=== PATIENT | female | born 1945 | race Asian ===

== ENCOUNTER 2023-03-23 04:06 | Inpatient (IN) | payer MEDICARE, OTHER ==
[~2023-03-23] VITALS: Ht 152.4 cm; Wt 63.5 kg
[2023-03-23] MEDS ORDERED: LORAZEPAM INJ 2 MG/ML VIAL IV ONE ×2 (04:30→06:00)
[2023-03-23] MEDS ORDERED: LORAZEPAM INJ 2 MG/ML VIAL ONE ×2 (04:33→05:35)
[2023-03-23 04:53] LABS: BASOPHILS % (AUTO) 0.3 % (0.0-2.0); EOSINOPHILS # (AUTO) 0.6 K/uL (0.0-0.7); EOSINOPHILS % (AUTO) 8.9 % (0.0-6.0); HEMATOCRIT 32 % (33-45); HEMOGLOBIN 10.2 g/dL (11.5-14.8); LYMPHOCYTES % (AUTO) 14.9 % (20.0-44.0); MEAN CORPUSCULAR HEMOGLOBIN 29 PG (26.0-33.0); MEAN CORPUSCULAR HGB CONC 32 g/dl (31.0-36.0); MEAN CORPUSCULAR VOLUME 90 fL (82-100); MONOCYTES # (AUTO) 0.6 K/uL (0.1-1.30); MONOCYTES % (AUTO) 8.5 % (2.0-12.0); NEUTROPHILS # (AUTO) 4.7 K/uL (1.8-8.9); NEUTROPHILS % (AUTO) 67.4 % (43.0-81.0); PLATELET COUNT (AUTO) 221 K/uL (150-450); RED BLOOD CELL COUNT(AUTO) 3.54 MIL/uL (4.0-5.2); RED CELL DISTRIBUTION WIDTH 17.5 % (11.5-15.0)
[2023-03-23] MEDS ORDERED: hydrALAZINE HCL IV 20 MG VIAL IV ONE (05:00)
[2023-03-23 05:03] LABS: CALCIUM, SERUM 8.8 mg/dL (8.5-10.1); CARBON DIOXIDE 24 mmol/L (21-32); CHLORIDE 107 mmol/L (98-107); CREATININE 1.9 mg/dL (0.6-1.3); GLUCOSE 79 mg/dL (74-106); POTASSIUM 4.7 mmol/L (3.5-5.1); SODIUM SERUM 137 mmol/L (136-145); UREA NITROGEN, BLOOD 51 mg/dL (7-18)
[2023-03-23] MEDS ORDERED: hydrALAZINE HCL IV 20 MG VIAL ONE ×2 (05:05→09:42)
[2023-03-23 05:11] LABS: LACTIC ACID 0.3 mmol/L (0.4-2.0)
[2023-03-23 05:14] LABS: INR 0.92 (0.91-1.10); PARTIAL THROMBOPLASTIN TIME 37.3 SEC (24.3-34.3); PROTHROMBIN TIME 9.8 SECS (9.2-11.1)
[2023-03-23 05:15] LABS: ALANINE AMINOTRANSFERASE 57 U/L (12-78); ALBUMIN 1.8 g/dL (3.4-5.0); ALKALINE PHOSPHATASE 718 U/L (46-116); ASPARTATE AMINOTRANSFERASE 31 U/L (15-37); BILIRUBIN,DIRECT 0.1 mg/dL (0.0-0.2); BILIRUBIN,TOTAL 0.2 mg/dL (0.2-1.0); NT-PRO BNP 16775 pg/mL (0-125); TOTAL PROTEIN, SERUM 6.7 g/dL (6.4-8.2)
[2023-03-23] MEDS ORDERED: FUROSEMIDE 40 MG/4 ML VIAL IV ONE (05:30)
[2023-03-23] MEDS ORDERED: FUROSEMIDE 40 MG/4 ML VIAL ONE (05:35)
[2023-03-23] MEDS ORDERED: NITROGLYCERIN 0.4 MG/TAB BOTTLE ONE (05:36)
[2023-03-23] MEDS ORDERED: Z GUARD REMEDY 4 OZ OINT TP PRN (06:00)
[2023-03-23] MEDS ORDERED: ONDANSETRON HCL/PF 4 MG/2 ML VIAL IVP PRN (06:00)
[2023-03-23] MEDS ORDERED: NITROGLYCERIN 0.4 MG/TAB BOTTLE SL ONE (06:00)
[2023-03-23] MEDS ORDERED: PANTOPRAZOLE 40 MG TABLET.DR PO SCH (07:30)
[2023-03-23] MEDS ORDERED: HYDR-4303 PO (08:40)
[2023-03-23] MEDS ORDERED: TRAM50TA2 PO (08:40)
[2023-03-23] MEDS ORDERED: AMIN30LI2 PO (08:40)
[2023-03-23] MEDS ORDERED: TRAZ-182 PO (08:41)
[2023-03-23] MEDS ORDERED: FOLI0.8T23 PO (08:41)
[2023-03-23] MEDS ORDERED: ONDA4TAB5 PO (08:41)
[2023-03-23] MEDS ORDERED: INSU100V39 SQ (08:41)
[2023-03-23] MEDS ORDERED: INSU100I45 SQ (08:41)
[2023-03-23] MEDS ORDERED: ASCO-340 PO (08:41)
[2023-03-23] MEDS ORDERED: PANT40TA49 PO (08:41)
[2023-03-23] MEDS ORDERED: IPRA3AMP22 IH (08:41)
[2023-03-23] MEDS ORDERED: FERR325T23 PO (08:41)
[2023-03-23] MEDS ORDERED: NUT.237L28 PO (08:41)
[2023-03-23] MEDS ORDERED: MAGN400O6 PO (08:41)
[2023-03-23] MEDS ORDERED: ZINC220C6 PO (08:41)
[2023-03-23] MEDS ORDERED: LIDO30AD10 TP (08:41)
[2023-03-23] MEDS ORDERED: ACET-2605 PO (08:41)
[2023-03-23] MEDS ORDERED: ENOX40DI SQ (08:41)
[2023-03-23] MEDS ORDERED: AMLO10TA4 PO (08:41)
[2023-03-23] MEDS ORDERED: DOCU100T2 PO (08:41)
[2023-03-23] MEDS ORDERED: CARV25TA PO (08:41)
[2023-03-23] MEDS ORDERED: NA P133E RC (08:41)
[2023-03-23] MEDS ORDERED: LORA-258 PO (08:41)
[2023-03-23] MEDS ORDERED: POLY17PO4 PO (08:41)
[2023-03-23] MEDS ORDERED: ACET-868 PO (08:41)
[2023-03-23] MEDS ORDERED: MIRT7.5T10 PO (08:41)
[2023-03-23] MEDS ORDERED: LEVO75TA7 PO (08:41)
[2023-03-23] MEDS ORDERED: ATOR40TA PO (08:42)
[2023-03-23] MEDS ORDERED: FUROSEMIDE 20 MG/2 ML VIAL IV SCH (09:00)
[2023-03-23] MEDS: NITROGLYCERIN PACKET 1 GM PACKET TOP SCH ×2 (09:00→22:36)
[2023-03-23] MEDS ORDERED: ALBUTEROL FS 2.5 MG/3 ML VIAL.NEB ONE (09:07)
[2023-03-23] MEDS ORDERED: IPRATROPIUM NEB FS 0.5 MG/2.5 ML AMPUL.NEB ONE (09:08)
[2023-03-23 09:14] VITALS: O2SAT 97
[2023-03-23] MEDS: ALBUTEROL HALF STRENGTH 1.25 MG/3 ML VIAL.NEB NEB SCH (09:14)
[2023-03-23] MEDS: IPRATROPIUM NEB FS 0.5 MG/2.5 ML AMPUL.NEB NEB SCH (09:14)
[2023-03-23 09:31] VITALS: O2SAT 98
[2023-03-23] MEDS ORDERED: NITROGLYCERIN PACKET 1 GM PACKET ONE (09:43)
[2023-03-23] MEDS: hydrALAZINE HCL IV 20 MG VIAL IV PRN (09:52)
[2023-03-23] MEDS: hydrALAZINE HCL 50 MG TABLET PO SCH (11:00)
[2023-03-23] MEDS: LEVOTHYROXINE SODIUM 75 MCG TABLET PO SCH (11:00)
[2023-03-23] MEDS ORDERED: ENOXAPARIN SODIUM 40 MG/0.4 ML DISP.SYRIN SQ SCH (11:00)
[2023-03-23] MEDS: AMLODIPINE BESYLATE 10 MG TABLET PO SCH (11:00)
[2023-03-23] MEDS: PANTOPRAZOLE 40 MG TABLET.DR PO SCH (11:00)
[2023-03-23] MEDS: POLYETHYLENE GLYCOL 3350 17 GM POWD.PACK PO SCH (11:00)
[2023-03-23] MEDS ORDERED: ACETAMINOPHEN 325 MG TABLET ONE (14:28)
[2023-03-23] MEDS ORDERED: ACETAMINOPHEN 650 MG/SUPP.RECT RC ONE (15:34)
[2023-03-23] MEDS: ACETAMINOPHEN 650 MG/SUPP.RECT RC PRN ×3 (15:46→23:48)
[2023-03-23] MEDS: ACETAMINOPHEN 325 MG TABLET PO PRN ×3 (15:59→23:05)
[2023-03-23] MEDS: CEFTRIAXONE 1 G in IV D5W 50 ML IV SCH (17:00)
[2023-03-23] MEDS: CARVEDILOL 12.5 MG TABLET PO SCH (17:00)
[2023-03-23] MEDS ORDERED: CEFTRIAXONE 1GM BAG (ER ONLY) 50 ML IV ONE ×2 (18:43→19:29)
[2023-03-23] MEDS: AZITHROMYCIN 500 MG in IV D5W 250 ML IV SCH (18:50)
[2023-03-23 20:35] VITALS: BP 136/62; TEMP 97.9; O2SAT 97
[2023-03-23] MEDS: methylPREDNISolone SOD SUCC 125 MG/2ML VIAL IV SCH (22:37)
[2023-03-23] MEDS: HEPARIN SODIUM, PORCINE 5000 UNITS/1 ML VIAL SQ SCH (22:42)
[2023-03-23] MEDS ORDERED: DEXTROSE 50%-WATER 50 ML DISP.SYRIN IV PRN (23:30)
[2023-03-23] MEDS ORDERED: diphenhydrAMINE HCL 50 MG/ML VIAL IV ONE (23:30)
[2023-03-23] MEDS: BLOOD SUGAR DIAGNOSTIC 1 EACH STRIP IN SCH (23:48)
[2023-03-23] MEDS: INSULIN REGULAR, HUMAN 100 UNIT/ML 3 ML VIAL SQ PRN (23:50)
[2023-03-24] VITALS (14 sets, daily range): BP systolic 92–133; BP diastolic 53–70; TEMP 97.2–98; O2SAT 93–98
[2023-03-24] MEDS: ALBUTEROL HALF STRENGTH 1.25 MG/3 ML VIAL.NEB NEB SCH ×4 (01:07→20:12)
[2023-03-24] MEDS: IPRATROPIUM NEB FS 0.5 MG/2.5 ML AMPUL.NEB NEB SCH ×4 (01:07→20:12)
[2023-03-24 01:18] LABS: ABG BASE EXCESS -10.1 mmol/L; ABG OXYGEN SATURATION 97.7 % (92.0-98.5); ABG PCO2 64.8 mmHg (35.0-45.0); ABG PH 7.105 (7.350-7.450); ABG TOTAL HEMOGLOBIN 11.4 G/dL (12.0-16.0); COHb 0.3 % (0.5-1.5); MetHb 0.5 % (0.0-1.5); O2Hb 96.9 % (94.0-97.0); SITE, ABG Left Radial; VENT MODE, BG 8 L O2 NC
[2023-03-24] MEDS: methylPREDNISolone SOD SUCC 125 MG/2ML VIAL IV SCH ×3 (05:47→20:50)
[2023-03-24 07:08] LABS: HEMATOCRIT 34 % (33-45); HEMOGLOBIN 10.2 g/dL (11.5-14.8); LYMPHOCYTES # (AUTO) 0.7 K/uL (0.8-4.8); MEAN CORPUSCULAR HEMOGLOBIN 29 PG (26.0-33.0); MEAN CORPUSCULAR HGB CONC 30 g/dl (31.0-36.0); MEAN CORPUSCULAR VOLUME 94 fL (82-100); MONOCYTES # (AUTO) 0.2 K/uL (0.1-1.30); MONOCYTES % (AUTO) 1.6 % (2.0-12.0); NEUTROPHILS # (AUTO) 10.4 K/uL (1.8-8.9); NEUTROPHILS % (AUTO) 92.4 % (43.0-81.0); PLATELET COUNT (AUTO) 217 K/uL (150-450); RED BLOOD CELL COUNT(AUTO) 3.59 MIL/uL (4.0-5.2); RED CELL DISTRIBUTION WIDTH 18.1 % (11.5-15.0); WHITE BLOOD COUNT (AUTO) 11.2 K/uL (4.3-11.0)
[2023-03-24 07:38] LABS: CHOLESTEROL 189 mg/dL (<200); HDL CHOLESTEROL 81 mg/dL (40-60); LDL 64 mg/dL (0-99); TRIGLYCERIDES 144 mg/dL (30-150)
[2023-03-24 07:42] LABS: CARBON DIOXIDE 14 mmol/L (21-32); CHLORIDE 106 mmol/L (98-107); CREATININE 2.6 mg/dL (0.6-1.3); GLUCOSE 103 mg/dL (74-106); MAGNESIUM 1.9 mg/dL (1.8-2.4); POTASSIUM 5.5 mmol/L (3.5-5.1); SODIUM SERUM 139 mmol/L (136-145); UREA NITROGEN, BLOOD 73 mg/dL (7-18)
[2023-03-24] MEDS: BLOOD SUGAR DIAGNOSTIC 1 EACH STRIP IN SCH ×4 (07:54→21:44)
[2023-03-24 08:47] LABS: PHOSPHORUS 8.7 mg/dL (2.5-4.9)
[2023-03-24] MEDS: POLYETHYLENE GLYCOL 3350 17 GM POWD.PACK PO SCH (08:51)
[2023-03-24] MEDS: AMLODIPINE BESYLATE 10 MG TABLET PO SCH (08:52)
[2023-03-24] MEDS: NITROGLYCERIN PACKET 1 GM PACKET TOP SCH ×2 (08:52→21:11)
[2023-03-24] MEDS: LEVOTHYROXINE SODIUM 75 MCG TABLET PO SCH (08:53)
[2023-03-24] MEDS: CARVEDILOL 12.5 MG TABLET PO SCH ×2 (08:53→17:29)
[2023-03-24] MEDS: PANTOPRAZOLE 40 MG TABLET.DR PO SCH ×2 (08:55→17:29)
[2023-03-24] MEDS: HEPARIN SODIUM, PORCINE 5000 UNITS/1 ML VIAL SQ SCH ×2 (09:01→20:57)
[2023-03-24] MEDS: hydrALAZINE HCL 50 MG TABLET PO SCH ×3 (09:26→17:28)
[2023-03-24] MEDS: LORAZEPAM 0.5 MG TABLET PO PRN ×2 (09:51→21:55)
[2023-03-24] MEDS ORDERED: IV D5/ 0.9% NACL 1,000 ML IV PRN (13:30)
[2023-03-24] MEDS: AZITHROMYCIN 500 MG in IV D5W 250 ML IV SCH (16:43)
[2023-03-24] MEDS: CEFTRIAXONE 1 G in IV D5W 50 ML IV SCH (17:26)
[2023-03-24] MEDS: INSULIN REGULAR, HUMAN 100 UNIT/ML 3 ML VIAL SQ PRN (22:00)
[2023-03-25] VITALS (16 sets, daily range): BP systolic 88–156; BP diastolic 44–91; TEMP 97.9–99.8; O2SAT 93–99
[2023-03-25] MEDS: IPRATROPIUM NEB FS 0.5 MG/2.5 ML AMPUL.NEB NEB SCH ×4 (01:44→20:10)
[2023-03-25] MEDS: ALBUTEROL HALF STRENGTH 1.25 MG/3 ML VIAL.NEB NEB SCH ×4 (01:44→20:10)
[2023-03-25] MEDS: methylPREDNISolone SOD SUCC 125 MG/2ML VIAL IV SCH ×3 (05:38→20:58)
[2023-03-25 06:52] LABS: BASOPHILS % (AUTO) 0.1 % (0.0-2.0); EOSINOPHILS % (AUTO) 0.1 % (0.0-6.0); HEMATOCRIT 31 % (33-45); HEMOGLOBIN 9.8 g/dL (11.5-14.8); LYMPHOCYTES # (AUTO) 0.6 K/uL (0.8-4.8); LYMPHOCYTES % (AUTO) 5.1 % (20.0-44.0); MEAN CORPUSCULAR HEMOGLOBIN 29 PG (26.0-33.0); MEAN CORPUSCULAR HGB CONC 31 g/dl (31.0-36.0); MEAN CORPUSCULAR VOLUME 93 fL (82-100); MONOCYTES # (AUTO) 0.2 K/uL (0.1-1.30); NEUTROPHILS % (AUTO) 92.7 % (43.0-81.0); PLATELET COUNT (AUTO) 208 K/uL (150-450); RED BLOOD CELL COUNT(AUTO) 3.37 MIL/uL (4.0-5.2); RED CELL DISTRIBUTION WIDTH 17.3 % (11.5-15.0); WHITE BLOOD COUNT (AUTO) 11.8 K/uL (4.3-11.0)
[2023-03-25 07:01] LABS: CALCIUM, SERUM 8.1 mg/dL (8.5-10.1); CARBON DIOXIDE 14 mmol/L (21-32); CHLORIDE 106 mmol/L (98-107); CREATININE 3.3 mg/dL (0.6-1.3); GLUCOSE 165 mg/dL (74-106); MAGNESIUM 2.1 mg/dL (1.8-2.4); POTASSIUM 5.9 mmol/L (3.5-5.1); SODIUM SERUM 138 mmol/L (136-145)
[2023-03-25 07:02] LABS: UREA NITROGEN, BLOOD 88 mg/dL (7-18)
[2023-03-25] MEDS: BLOOD SUGAR DIAGNOSTIC 1 EACH STRIP IN SCH ×4 (07:58→22:00)
[2023-03-25] MEDS: INSULIN REGULAR, HUMAN 100 UNIT/ML 3 ML VIAL SQ PRN ×4 (08:10→23:18)
[2023-03-25 08:55] LABS: ABG BASE EXCESS -13.4 mmol/L; ABG OXYGEN SATURATION 96.9 % (92.0-98.5); ABG PCO2 44.1 mmHg (35.0-45.0); ABG PH 7.146 (7.350-7.450); ABG TOTAL HEMOGLOBIN 11.2 G/dL (12.0-16.0); AaDO2 124.5 mmHg; COHb 0.3 % (0.5-1.5); MetHb 0.4 % (0.0-1.5); O2Hb 96.2 % (94.0-97.0); SITE, ABG Left Radial; VENT MODE, BG Nasal Cannula
[2023-03-25] MEDS ORDERED: DEXTROSE 50%-WATER 50 ML DISP.SYRIN IV ONE (09:00)
[2023-03-25] MEDS ORDERED: ALBUTEROL FS 2.5 MG/3 ML VIAL.NEB NEB ONE (09:00)
[2023-03-25] MEDS ORDERED: INSULIN REGULAR, HUMAN 100 UNIT/ML 10 ML VIAL IV ONE (09:00)
[2023-03-25] MEDS ORDERED: SODIUM BICARBONATE SYR 50 MEQ/50 ML DISP.SYRIN IV ONE (09:00)
[2023-03-25] MEDS: POLYETHYLENE GLYCOL 3350 17 GM POWD.PACK PO SCH (09:00)
[2023-03-25] MEDS: HEPARIN SODIUM, PORCINE 5000 UNITS/1 ML VIAL SQ SCH ×2 (09:43→20:56)
[2023-03-25] MEDS: LEVOTHYROXINE SODIUM 75 MCG TABLET PO SCH (09:48)
[2023-03-25] MEDS: NITROGLYCERIN PACKET 1 GM PACKET TOP SCH ×3 (09:48→21:02)
[2023-03-25] MEDS: PANTOPRAZOLE 40 MG TABLET.DR PO SCH ×2 (09:48→17:31)
[2023-03-25] MEDS: LORAZEPAM 0.5 MG TABLET PO PRN (09:48)
[2023-03-25] MEDS: AMLODIPINE BESYLATE 10 MG TABLET PO SCH (10:20)
[2023-03-25] MEDS: hydrALAZINE HCL 50 MG TABLET PO SCH ×3 (10:21→16:09)
[2023-03-25] MEDS: CARVEDILOL 12.5 MG TABLET PO SCH ×2 (10:21→16:09)
[2023-03-25 12:04] LABS: CREATININE, URINE 65.7 MG/DL (30.0-125.0); URINE TOTAL PROTEIN 1779.3 mg/dL (0-11.9)
[2023-03-25 12:12] LABS: APPEARANCE,URINE TURBID (CLEAR); BILIRUBIN,URINE NEGATIVE (NEGATIVE); BLOOD, URINE 1+ Ery/uL (NEGATIVE); COLOR,URINE DARK YELLOW (YELLOW); KETONES,URINE TRACE mg/dL (NEGATIVE); LEUKOCYTE ESTERASE ,URINE 1+ (NEGATIVE); NITRITE, URINE NEGATIVE (NEGATIVE); PROTEIN,URINE 3+ mg/dl (NEGATIVE); UGLUCOSE NEGATIVE (NEGATIVE); UROBILINOGEN,URINE 0.2 EU/dL (0.2)
[2023-03-25 12:31] LABS: ADD URINE CULTURE YES; BACTERIA,URINE Few /HPF (None Seen); EOSINOPHIL,URINE None Seen; SQUAMOUS EPITHELIAL CELL,UR Rare /HPF (None Seen)
[2023-03-25] MEDS: Sodium Bicarbonate 100 MEQ in IV D5 / 0.2% NACL 1,000 ML IV SCH ×3 (12:48→23:16)
[2023-03-25] MEDS: CALCIUM ACETATE 667 MG CAP/TAB PO SCH ×2 (12:51→17:31)
[2023-03-25 14:18] LABS: CALCIUM, SERUM 7.8 mg/dL (8.5-10.1); CARBON DIOXIDE 17 mmol/L (21-32); CHLORIDE 107 mmol/L (98-107); CREATININE 3.5 mg/dL (0.6-1.3); GLUCOSE 132 mg/dL (74-106); POTASSIUM 5.2 mmol/L (3.5-5.1); SODIUM SERUM 139 mmol/L (136-145)
[2023-03-25] MEDS: AZITHROMYCIN 500 MG in IV D5W 250 ML IV SCH (15:31)
[2023-03-25] MEDS: CEFTRIAXONE 1 G in IV D5W 50 ML IV SCH (16:35)
[2023-03-25 16:54] LABS: UREA NITROGEN, BLOOD 96 mg/dL (7-18)
[2023-03-26] VITALS (14 sets, daily range): BP systolic 126–142; BP diastolic 57–98; TEMP 97–97.9; O2SAT 96–98
[2023-03-26] MEDS: ALBUTEROL HALF STRENGTH 1.25 MG/3 ML VIAL.NEB NEB SCH ×4 (00:46→20:24)
[2023-03-26] MEDS: IPRATROPIUM NEB FS 0.5 MG/2.5 ML AMPUL.NEB NEB SCH ×4 (00:46→20:24)
[2023-03-26] MEDS: methylPREDNISolone SOD SUCC 125 MG/2ML VIAL IV SCH (05:00)
[2023-03-26 06:22] LABS: ABG BASE EXCESS -7.3 mmol/L; ABG PCO2 44.6 mmHg (35.0-45.0); ABG PH 7.258 (7.350-7.450); ABG PO2 70.7 mmHg (75.0-100.0); AaDO2 105.3 mmHg; COHb 0.3 % (0.5-1.5); MetHb 0.1 % (0.0-1.5); O2Hb 92.6 % (94.0-97.0); SITE, ABG Right Radial; VENT MODE, BG NC 32 %
[2023-03-26 07:06] LABS: BASOPHILS % (AUTO) 0.1 % (0.0-2.0); HEMATOCRIT 31 % (33-45); LYMPHOCYTES # (AUTO) 0.4 K/uL (0.8-4.8); LYMPHOCYTES % (AUTO) 2.3 % (20.0-44.0); MEAN CORPUSCULAR HEMOGLOBIN 29 PG (26.0-33.0); MEAN CORPUSCULAR HGB CONC 32 g/dl (31.0-36.0); MEAN CORPUSCULAR VOLUME 89 fL (82-100); MONOCYTES # (AUTO) 0.3 K/uL (0.1-1.30); MONOCYTES % (AUTO) 1.6 % (2.0-12.0); NEUTROPHILS # (AUTO) 17.6 K/uL (1.8-8.9); PLATELET COUNT (AUTO) 229 K/uL (150-450); RED BLOOD CELL COUNT(AUTO) 3.47 MIL/uL (4.0-5.2); RED CELL DISTRIBUTION WIDTH 17.3 % (11.5-15.0); WHITE BLOOD COUNT (AUTO) 18.3 K/uL (4.3-11.0)
[2023-03-26 07:21] LABS: ALANINE AMINOTRANSFERASE 47 U/L (12-78); ALBUMIN 1.8 g/dL (3.4-5.0); ALKALINE PHOSPHATASE 463 U/L (46-116); ASPARTATE AMINOTRANSFERASE 56 U/L (15-37); BILIRUBIN,TOTAL 0.2 mg/dL (0.2-1.0); CALCIUM, SERUM 7.4 mg/dL (8.5-10.1); CARBON DIOXIDE 18 mmol/L (21-32); CHLORIDE 103 mmol/L (98-107); CREATININE 3.3 mg/dL (0.6-1.3); GLUCOSE 180 mg/dL (74-106); POTASSIUM 5.7 mmol/L (3.5-5.1); SODIUM SERUM 137 mmol/L (136-145); TOTAL PROTEIN, SERUM 6.5 g/dL (6.4-8.2)
[2023-03-26 07:23] LABS: LACTIC ACID 0.5 mmol/L (0.4-2.0)
[2023-03-26 07:57] LABS: PHOSPHORUS 8.7 mg/dL (2.5-4.9); UREA NITROGEN, BLOOD 94 mg/dL (7-18)
[2023-03-26] MEDS: BLOOD SUGAR DIAGNOSTIC 1 EACH STRIP IN SCH ×4 (08:02→21:58)
[2023-03-26] MEDS: NITROGLYCERIN PACKET 1 GM PACKET TOP SCH ×2 (08:11→20:10)
[2023-03-26] MEDS: CALCIUM ACETATE 667 MG CAP/TAB PO SCH ×3 (08:11→17:06)
[2023-03-26] MEDS: hydrALAZINE HCL 50 MG TABLET PO SCH ×3 (08:12→16:56)
[2023-03-26] MEDS: AMLODIPINE BESYLATE 10 MG TABLET PO SCH (08:12)
[2023-03-26] MEDS: LEVOTHYROXINE SODIUM 75 MCG TABLET PO SCH (08:12)
[2023-03-26] MEDS: PANTOPRAZOLE 40 MG TABLET.DR PO SCH ×2 (08:13→16:58)
[2023-03-26] MEDS: POLYETHYLENE GLYCOL 3350 17 GM POWD.PACK PO SCH (08:13)
[2023-03-26] MEDS: LORAZEPAM 0.5 MG TABLET PO PRN (08:13)
[2023-03-26] MEDS: CARVEDILOL 12.5 MG TABLET PO SCH ×2 (08:13→16:56)
[2023-03-26] MEDS: HEPARIN SODIUM, PORCINE 5000 UNITS/1 ML VIAL SQ SCH ×2 (08:14→20:09)
[2023-03-26] MEDS: INSULIN REGULAR, HUMAN 100 UNIT/ML 3 ML VIAL SQ PRN ×4 (08:39→22:01)
[2023-03-26] MEDS: Sodium Bicarbonate 100 MEQ in IV D5 / 0.2% NACL 1,000 ML IV SCH (11:52)
[2023-03-26] MEDS ORDERED: LORAZEPAM INJ 2 MG/ML VIAL IV ONE (12:30)
[2023-03-26] MEDS: AZITHROMYCIN 500 MG in IV D5W 250 ML IV SCH (16:04)
[2023-03-26] MEDS: CEFTRIAXONE 1 G in IV D5W 50 ML IV SCH (16:58)
[2023-03-26] MEDS: methylPREDNISolone SOD SUCC 40 MG/ML VIAL IV SCH (17:16)
[2023-03-26] MEDS: Sodium Bicarbonate 150 MEQ in IV D5 / 0.2% NACL 1,000 ML IV SCH (18:18)
[2023-03-27] VITALS (12 sets, daily range): BP systolic 103–139; BP diastolic 68–84; TEMP 97.8–98.2; O2SAT 95–100
[2023-03-27] MEDS: ALBUTEROL HALF STRENGTH 1.25 MG/3 ML VIAL.NEB NEB SCH ×4 (01:43→20:44)
[2023-03-27] MEDS: IPRATROPIUM NEB FS 0.5 MG/2.5 ML AMPUL.NEB NEB SCH ×4 (01:43→20:44)
[2023-03-27] MEDS ORDERED: LORAZEPAM INJ 2 MG/ML VIAL IV ONE (02:00)
[2023-03-27] MEDS: Sodium Bicarbonate 150 MEQ in IV D5 / 0.2% NACL 1,000 ML IV SCH (07:13)
[2023-03-27] MEDS: BLOOD SUGAR DIAGNOSTIC 1 EACH STRIP IN SCH ×4 (07:22→22:49)
[2023-03-27] MEDS: INSULIN REGULAR, HUMAN 100 UNIT/ML 3 ML VIAL SQ PRN ×3 (07:23→23:07)
[2023-03-27] MEDS: AMLODIPINE BESYLATE 10 MG TABLET PO SCH (08:33)
[2023-03-27] MEDS: PANTOPRAZOLE 40 MG TABLET.DR PO SCH ×2 (08:33→16:01)
[2023-03-27] MEDS: CALCIUM ACETATE 667 MG CAP/TAB PO SCH ×3 (08:35→17:00)
[2023-03-27] MEDS: CARVEDILOL 12.5 MG TABLET PO SCH ×2 (08:35→16:01)
[2023-03-27] MEDS: hydrALAZINE HCL 50 MG TABLET PO SCH ×3 (08:35→16:00)
[2023-03-27] MEDS: methylPREDNISolone SOD SUCC 40 MG/ML VIAL IV SCH ×2 (08:35→16:19)
[2023-03-27] MEDS: NITROGLYCERIN PACKET 1 GM PACKET TOP SCH ×2 (08:35→21:05)
[2023-03-27] MEDS: LEVOTHYROXINE SODIUM 75 MCG TABLET PO SCH (08:36)
[2023-03-27] MEDS: HEPARIN SODIUM, PORCINE 5000 UNITS/1 ML VIAL SQ SCH ×2 (08:39→21:09)
[2023-03-27] MEDS: POLYETHYLENE GLYCOL 3350 17 GM POWD.PACK PO SCH (08:40)
[2023-03-27] MEDS ORDERED: VIT B CMPLX 3/FA/VIT C/BIOTIN 1 TAB TABLET PO SCH (09:00)
[2023-03-27] MEDS: MORPHINE SULFATE INJ 2 MG/ML DISP.SYRIN IV PRN (12:13)
[2023-03-27] MEDS: LORAZEPAM 0.5 MG TABLET PO PRN (12:14)
[2023-03-27 15:52] LABS: HEMATOCRIT 30 % (33-45); HEMOGLOBIN 9.7 g/dL (11.5-14.8); LYMPHOCYTES # (AUTO) 0.2 K/uL (0.8-4.8); LYMPHOCYTES % (AUTO) 2.6 % (20.0-44.0); MEAN CORPUSCULAR HEMOGLOBIN 29 PG (26.0-33.0); MEAN CORPUSCULAR HGB CONC 33 g/dl (31.0-36.0); MEAN CORPUSCULAR VOLUME 89 fL (82-100); MONOCYTES # (AUTO) 0.2 K/uL (0.1-1.30); MONOCYTES % (AUTO) 1.8 % (2.0-12.0); NEUTROPHILS # (AUTO) 8.9 K/uL (1.8-8.9); NEUTROPHILS % (AUTO) 95.6 % (43.0-81.0); PLATELET COUNT (AUTO) 176 K/uL (150-450); RED BLOOD CELL COUNT(AUTO) 3.37 MIL/uL (4.0-5.2); RED CELL DISTRIBUTION WIDTH 17.6 % (11.5-15.0); WHITE BLOOD COUNT (AUTO) 9.3 K/uL (4.3-11.0)
[2023-03-27 16:01] LABS: CALCIUM, SERUM 6.9 mg/dL (8.5-10.1); CARBON DIOXIDE 29 mmol/L (21-32); CHLORIDE 104 mmol/L (98-107); CREATININE 2.9 mg/dL (0.6-1.3); GLUCOSE 95 mg/dL (74-106); MAGNESIUM 1.8 mg/dL (1.8-2.4); PHOSPHORUS 7.6 mg/dL (2.5-4.9); POTASSIUM 4.6 mmol/L (3.5-5.1); SODIUM SERUM 142 mmol/L (136-145)
[2023-03-27 16:06] LABS: UREA NITROGEN, BLOOD 89 mg/dL (7-18)
[2023-03-27] MEDS: AZITHROMYCIN 500 MG in IV D5W 250 ML IV SCH (16:19)
[2023-03-27] MEDS: CEFTRIAXONE 1 G in IV D5W 50 ML IV SCH (17:17)
[2023-03-28] VITALS (12 sets, daily range): BP systolic 106–170; BP diastolic 78–140; TEMP 96.7–98.2; O2SAT 89–98
[2023-03-28] MEDS: LORAZEPAM 0.5 MG TABLET PO PRN (00:48)
[2023-03-28] MEDS: ALBUTEROL HALF STRENGTH 1.25 MG/3 ML VIAL.NEB NEB SCH ×4 (02:12→20:01)
[2023-03-28] MEDS: IPRATROPIUM NEB FS 0.5 MG/2.5 ML AMPUL.NEB NEB SCH ×4 (02:12→20:01)
[2023-03-28] MEDS: Sodium Bicarbonate 150 MEQ in IV D5 / 0.2% NACL 1,000 ML IV SCH ×2 (04:34→10:08)
[2023-03-28] MEDS: BLOOD SUGAR DIAGNOSTIC 1 EACH STRIP IN SCH ×4 (06:20→21:28)
[2023-03-28] MEDS: INSULIN REGULAR, HUMAN 100 UNIT/ML 3 ML VIAL SQ PRN ×2 (06:47→21:28)
[2023-03-28] MEDS: CALCIUM ACETATE 667 MG CAP/TAB PO SCH ×3 (08:00→18:00)
[2023-03-28 08:09] LABS: BASOPHILS % (AUTO) 0.5 % (0.0-2.0); HEMATOCRIT 34 % (33-45); HEMOGLOBIN 10.8 g/dL (11.5-14.8); LYMPHOCYTES # (AUTO) 0.3 K/uL (0.8-4.8); LYMPHOCYTES % (AUTO) 3.3 % (20.0-44.0); MEAN CORPUSCULAR HEMOGLOBIN 29 PG (26.0-33.0); MEAN CORPUSCULAR HGB CONC 32 g/dl (31.0-36.0); MEAN CORPUSCULAR VOLUME 91 fL (82-100); MONOCYTES # (AUTO) 0.5 K/uL (0.1-1.30); MONOCYTES % (AUTO) 5.2 % (2.0-12.0); NEUTROPHILS # (AUTO) 8.3 K/uL (1.8-8.9); PLATELET COUNT (AUTO) 124 K/uL (150-450); RED BLOOD CELL COUNT(AUTO) 3.69 MIL/uL (4.0-5.2); RED CELL DISTRIBUTION WIDTH 17.7 % (11.5-15.0); WHITE BLOOD COUNT (AUTO) 9.2 K/uL (4.3-11.0)
[2023-03-28 08:13] LABS: CALCIUM, SERUM 6.8 mg/dL (8.5-10.1); CARBON DIOXIDE 30 mmol/L (21-32); CHLORIDE 103 mmol/L (98-107); CREATININE 2.5 mg/dL (0.6-1.3); GLUCOSE 133 mg/dL (74-106); POTASSIUM 5.2 mmol/L (3.5-5.1); SODIUM SERUM 140 mmol/L (136-145)
[2023-03-28 08:20] LABS: UREA NITROGEN, BLOOD 85 mg/dL (7-18)
[2023-03-28] MEDS: methylPREDNISolone SOD SUCC 40 MG/ML VIAL IV SCH ×2 (08:38→17:02)
[2023-03-28] MEDS: hydrALAZINE HCL 50 MG TABLET PO SCH ×3 (08:40→17:00)
[2023-03-28] MEDS: MORPHINE SULFATE INJ 2 MG/ML DISP.SYRIN IV PRN ×2 (08:40→21:56)
[2023-03-28] MEDS: CARVEDILOL 12.5 MG TABLET PO SCH ×2 (08:40→17:00)
[2023-03-28] MEDS: NITROGLYCERIN PACKET 1 GM PACKET TOP SCH ×2 (08:41→20:27)
[2023-03-28] MEDS: PANTOPRAZOLE 40 MG TABLET.DR PO SCH ×2 (08:41→17:00)
[2023-03-28] MEDS: AMLODIPINE BESYLATE 10 MG TABLET PO SCH (08:41)
[2023-03-28] MEDS: POLYETHYLENE GLYCOL 3350 17 GM POWD.PACK PO SCH (08:41)
[2023-03-28] MEDS: LEVOTHYROXINE SODIUM 75 MCG TABLET PO SCH (08:41)
[2023-03-28] MEDS: HEPARIN SODIUM, PORCINE 5000 UNITS/1 ML VIAL SQ SCH ×2 (09:07→20:28)
[2023-03-28] MEDS: hydrALAZINE HCL IV 20 MG VIAL IV PRN (15:56)
[2023-03-28] MEDS: CEFTRIAXONE 1 G in IV D5W 50 ML IV SCH (17:17)
[2023-03-28] MEDS: IV D5/ 0.9% NACL 1,000 ML IV PRN (19:49)
[2023-03-29] VITALS (12 sets, daily range): BP systolic 130–156; BP diastolic 60–99; TEMP 97.9–98.2; O2SAT 94–98
[2023-03-29] MEDS: ALBUTEROL HALF STRENGTH 1.25 MG/3 ML VIAL.NEB NEB SCH ×4 (02:06→20:10)
[2023-03-29] MEDS: IPRATROPIUM NEB FS 0.5 MG/2.5 ML AMPUL.NEB NEB SCH ×4 (02:06→20:10)
[2023-03-29] MEDS ORDERED: LORAZEPAM INJ 2 MG/ML VIAL IV PRN (03:30)
[2023-03-29] MEDS: BLOOD SUGAR DIAGNOSTIC 1 EACH STRIP IN SCH ×4 (07:38→22:09)
[2023-03-29] MEDS: CALCIUM ACETATE 667 MG CAP/TAB PO SCH ×3 (07:40→17:00)
[2023-03-29 08:07] LABS: BASOPHILS % (AUTO) 0.2 % (0.0-2.0); HEMATOCRIT 38 % (33-45); HEMOGLOBIN 12.5 g/dL (11.5-14.8); LYMPHOCYTES # (AUTO) 0.4 K/uL (0.8-4.8); LYMPHOCYTES % (AUTO) 4.1 % (20.0-44.0); MEAN CORPUSCULAR HEMOGLOBIN 29 PG (26.0-33.0); MEAN CORPUSCULAR HGB CONC 33 g/dl (31.0-36.0); MEAN CORPUSCULAR VOLUME 89 fL (82-100); MONOCYTES # (AUTO) 0.3 K/uL (0.1-1.30); NEUTROPHILS # (AUTO) 9.5 K/uL (1.8-8.9); NEUTROPHILS % (AUTO) 92.7 % (43.0-81.0); PLATELET COUNT (AUTO) 190 K/uL (150-450); RED BLOOD CELL COUNT(AUTO) 4.25 MIL/uL (4.0-5.2); RED CELL DISTRIBUTION WIDTH 17.5 % (11.5-15.0); WHITE BLOOD COUNT (AUTO) 10.3 K/uL (4.3-11.0)
[2023-03-29] MEDS: methylPREDNISolone SOD SUCC 40 MG/ML VIAL IV SCH ×2 (08:17→16:27)
[2023-03-29] MEDS: MORPHINE SULFATE INJ 2 MG/ML DISP.SYRIN IV PRN ×2 (08:17→14:44)
[2023-03-29] MEDS: HEPARIN SODIUM, PORCINE 5000 UNITS/1 ML VIAL SQ SCH ×2 (08:18→20:47)
[2023-03-29] MEDS: hydrALAZINE HCL 50 MG TABLET PO SCH ×3 (08:19→16:27)
[2023-03-29] MEDS: CARVEDILOL 12.5 MG TABLET PO SCH ×2 (08:19→16:28)
[2023-03-29] MEDS: POLYETHYLENE GLYCOL 3350 17 GM POWD.PACK PO SCH (08:20)
[2023-03-29] MEDS: PANTOPRAZOLE 40 MG TABLET.DR PO SCH ×2 (08:20→16:28)
[2023-03-29] MEDS: AMLODIPINE BESYLATE 10 MG TABLET PO SCH (08:20)
[2023-03-29] MEDS: LEVOTHYROXINE SODIUM 75 MCG TABLET PO SCH (08:20)
[2023-03-29] MEDS: NITROGLYCERIN PACKET 1 GM PACKET TOP SCH ×2 (08:20→20:46)
[2023-03-29 08:23] LABS: CALCIUM, SERUM 7.2 mg/dL (8.5-10.1); CARBON DIOXIDE 27 mmol/L (21-32); CHLORIDE 104 mmol/L (98-107); CREATININE 2.4 mg/dL (0.6-1.3); GLUCOSE 146 mg/dL (74-106); MAGNESIUM 1.9 mg/dL (1.8-2.4); POTASSIUM 4.9 mmol/L (3.5-5.1); SODIUM SERUM 144 mmol/L (136-145)
[2023-03-29 08:47] LABS: UREA NITROGEN, BLOOD 88 mg/dL (7-18)
[2023-03-29] MEDS ORDERED: NEPRO 1,000 ML BOTTLE NG PRN (11:00)
[2023-03-29] MEDS: LORAZEPAM 0.5 MG TABLET PO PRN (14:27)
[2023-03-29] MEDS: CEFTRIAXONE 1 G in IV D5W 50 ML IV SCH (16:58)
[2023-03-29] MEDS: DIVALPROEX SODIUM 125 MG CAP.SPRINK PO SCH ×2 (18:00→20:46)
[2023-03-29] MEDS: LORAZEPAM INJ 2 MG/ML VIAL IV PRN (22:02)
[2023-03-29] MEDS: INSULIN REGULAR, HUMAN 100 UNIT/ML 3 ML VIAL SQ PRN (22:15)
[2023-03-30] VITALS (13 sets, daily range): BP systolic 133–167; BP diastolic 60–114; TEMP 97–97.9; O2SAT 90–100
[2023-03-30] MEDS: ALBUTEROL HALF STRENGTH 1.25 MG/3 ML VIAL.NEB NEB SCH ×4 (01:58→20:27)
[2023-03-30] MEDS: IPRATROPIUM NEB FS 0.5 MG/2.5 ML AMPUL.NEB NEB SCH ×4 (01:58→20:27)
[2023-03-30] MEDS: IV D5/ 0.9% NACL 1,000 ML IV PRN (03:04)
[2023-03-30 07:18] LABS: HEMATOCRIT 37 % (33-45); HEMOGLOBIN 11.8 g/dL (11.5-14.8); LYMPHOCYTES # (AUTO) 0.4 K/uL (0.8-4.8); MEAN CORPUSCULAR HEMOGLOBIN 29 PG (26.0-33.0); MEAN CORPUSCULAR HGB CONC 32 g/dl (31.0-36.0); MEAN CORPUSCULAR VOLUME 89 fL (82-100); MONOCYTES # (AUTO) 0.5 K/uL (0.1-1.30); MONOCYTES % (AUTO) 4.8 % (2.0-12.0); NEUTROPHILS # (AUTO) 8.8 K/uL (1.8-8.9); NEUTROPHILS % (AUTO) 91.2 % (43.0-81.0); PLATELET COUNT (AUTO) 188 K/uL (150-450); RED CELL DISTRIBUTION WIDTH 17.7 % (11.5-15.0); WHITE BLOOD COUNT (AUTO) 9.6 K/uL (4.3-11.0)
[2023-03-30] MEDS: BLOOD SUGAR DIAGNOSTIC 1 EACH STRIP IN SCH ×4 (07:32→22:09)
[2023-03-30] MEDS: CALCIUM ACETATE 667 MG CAP/TAB PO SCH ×3 (07:33→17:07)
[2023-03-30 07:45] LABS: CALCIUM, SERUM 7.5 mg/dL (8.5-10.1); CARBON DIOXIDE 31 mmol/L (21-32); CHLORIDE 107 mmol/L (98-107); CREATININE 2.7 mg/dL (0.6-1.3); GLUCOSE 99 mg/dL (74-106); POTASSIUM 5.1 mmol/L (3.5-5.1); SODIUM SERUM 146 mmol/L (136-145)
[2023-03-30 07:49] LABS: UREA NITROGEN, BLOOD 94 mg/dL (7-18)
[2023-03-30] MEDS: hydrALAZINE HCL 50 MG TABLET PO SCH ×3 (08:26→17:00)
[2023-03-30] MEDS: CARVEDILOL 12.5 MG TABLET PO SCH ×2 (08:30→17:00)
[2023-03-30] MEDS: AMLODIPINE BESYLATE 10 MG TABLET PO SCH (08:31)
[2023-03-30] MEDS: DIVALPROEX SODIUM 125 MG CAP.SPRINK PO SCH ×2 (08:31→21:00)
[2023-03-30] MEDS: POLYETHYLENE GLYCOL 3350 17 GM POWD.PACK PO SCH (08:31)
[2023-03-30] MEDS: PANTOPRAZOLE 40 MG TABLET.DR PO SCH ×2 (08:32→17:00)
[2023-03-30] MEDS: LEVOTHYROXINE SODIUM 75 MCG TABLET PO SCH (08:32)
[2023-03-30] MEDS: NITROGLYCERIN PACKET 1 GM PACKET TOP SCH ×2 (09:00→21:30)
[2023-03-30] MEDS: methylPREDNISolone SOD SUCC 40 MG/ML VIAL IV SCH (09:00)
[2023-03-30] MEDS: HEPARIN SODIUM, PORCINE 5000 UNITS/1 ML VIAL SQ SCH (09:03)
[2023-03-30] MEDS: LEVOTHYROXINE INJ 100 MCG VIAL IV SCH (15:21)
[2023-03-30] MEDS: LORAZEPAM INJ 2 MG/ML VIAL IV PRN (16:05)
[2023-03-30] MEDS: CEFTRIAXONE 1 G in IV D5W 50 ML IV SCH (17:13)
[2023-03-30] MEDS: IV D5W 1,000 ML IV PRN (20:44)
[2023-03-30] MEDS: INSULIN REGULAR, HUMAN 100 UNIT/ML 3 ML VIAL SQ PRN (22:14)
[2023-03-31] VITALS (11 sets, daily range): BP systolic 160–200; BP diastolic 66–118; TEMP 97.7–98.2; O2SAT 91–100
[2023-03-31] MEDS: LORAZEPAM INJ 2 MG/ML VIAL IV PRN ×2 (00:35→10:56)
[2023-03-31] MEDS: ALBUTEROL HALF STRENGTH 1.25 MG/3 ML VIAL.NEB NEB SCH ×4 (00:47→19:46)
[2023-03-31] MEDS: IPRATROPIUM NEB FS 0.5 MG/2.5 ML AMPUL.NEB NEB SCH ×4 (00:47→19:46)
[2023-03-31] MEDS: hydrALAZINE HCL IV 20 MG VIAL IV PRN ×2 (05:48→16:20)
[2023-03-31 06:59] LABS: BASOPHILS % (AUTO) 0.3 % (0.0-2.0); HEMATOCRIT 31 % (33-45); LYMPHOCYTES # (AUTO) 0.4 K/uL (0.8-4.8); LYMPHOCYTES % (AUTO) 3.5 % (20.0-44.0); MEAN CORPUSCULAR HEMOGLOBIN 29 PG (26.0-33.0); MEAN CORPUSCULAR HGB CONC 32 g/dl (31.0-36.0); MEAN CORPUSCULAR VOLUME 90 fL (82-100); MONOCYTES # (AUTO) 0.5 K/uL (0.1-1.30); MONOCYTES % (AUTO) 4.2 % (2.0-12.0); NEUTROPHILS # (AUTO) 11.9 K/uL (1.8-8.9); PLATELET COUNT (AUTO) 159 K/uL (150-450); RED BLOOD CELL COUNT(AUTO) 3.44 MIL/uL (4.0-5.2); RED CELL DISTRIBUTION WIDTH 17.4 % (11.5-15.0); WHITE BLOOD COUNT (AUTO) 12.9 K/uL (4.3-11.0)
[2023-03-31 07:22] LABS: CALCIUM, SERUM 8.1 mg/dL (8.5-10.1); CARBON DIOXIDE 28 mmol/L (21-32); CHLORIDE 109 mmol/L (98-107); CREATININE 2.5 mg/dL (0.6-1.3); GLUCOSE 168 mg/dL (74-106); MAGNESIUM 1.9 mg/dL (1.8-2.4); PHOSPHORUS 5.5 mg/dL (2.5-4.9); POTASSIUM 4.2 mmol/L (3.5-5.1); SODIUM SERUM 148 mmol/L (136-145)
[2023-03-31 07:24] LABS: UREA NITROGEN, BLOOD 87 mg/dL (7-18)
[2023-03-31] MEDS: CALCIUM ACETATE 667 MG CAP/TAB PO SCH ×3 (08:00→17:22)
[2023-03-31] MEDS: BLOOD SUGAR DIAGNOSTIC 1 EACH STRIP IN SCH ×4 (08:04→23:06)
[2023-03-31] MEDS: LEVOTHYROXINE INJ 100 MCG VIAL IV SCH (08:53)
[2023-03-31] MEDS: INSULIN REGULAR, HUMAN 100 UNIT/ML 3 ML VIAL SQ PRN ×4 (08:56→23:07)
[2023-03-31] MEDS: CARVEDILOL 12.5 MG TABLET PO SCH ×2 (09:00→16:25)
[2023-03-31] MEDS: POLYETHYLENE GLYCOL 3350 17 GM POWD.PACK PO SCH (09:00)
[2023-03-31] MEDS: PANTOPRAZOLE 40 MG TABLET.DR PO SCH ×2 (09:00→16:25)
[2023-03-31] MEDS: AMLODIPINE BESYLATE 10 MG TABLET PO SCH (09:00)
[2023-03-31] MEDS: DIVALPROEX SODIUM 125 MG CAP.SPRINK PO SCH ×2 (09:00→21:00)
[2023-03-31] MEDS: NITROGLYCERIN PACKET 1 GM PACKET TOP SCH ×2 (09:29→23:08)
[2023-03-31] MEDS: methylPREDNISolone SOD SUCC 40 MG/ML VIAL IV SCH (09:29)
[2023-03-31] MEDS: CLONIDINE HCL 0.3 MG/24H PTWK 1 EA PATCH TD SCH (09:30)
[2023-03-31 12:33] LABS: INR 0.98 (0.91-1.10); PROTHROMBIN TIME 10.4 SECS (9.2-11.1)
[2023-03-31] MEDS: IV D5W 1,000 ML IV PRN (15:00)
[2023-03-31] MEDS: CEFEPIME 1 GM in IV D5W 50 ML IV SCH (15:14)
[2023-03-31] MEDS: MORPHINE SULFATE INJ 2 MG/ML DISP.SYRIN IV PRN (17:54)
[2023-03-31] MEDS ORDERED: hydrALAZINE HCL IV 20 MG VIAL IV ONE (21:00)
[2023-04-01] VITALS (12 sets, daily range): BP systolic 150–198; BP diastolic 66–98; TEMP 97.5–98; O2SAT 91–99
[2023-04-01] MEDS: CEFEPIME 1 GM in IV D5W 50 ML IV SCH ×2 (01:45→13:31)
[2023-04-01] MEDS: MORPHINE SULFATE INJ 2 MG/ML DISP.SYRIN IV PRN ×2 (01:45→19:01)
[2023-04-01] MEDS: ALBUTEROL HALF STRENGTH 1.25 MG/3 ML VIAL.NEB NEB SCH ×4 (02:21→20:16)
[2023-04-01] MEDS: IPRATROPIUM NEB FS 0.5 MG/2.5 ML AMPUL.NEB NEB SCH ×4 (02:21→20:16)
[2023-04-01] MEDS: hydrALAZINE HCL IV 20 MG VIAL IV PRN ×3 (03:48→20:41)
[2023-04-01] MEDS: IV D5W 1,000 ML IV PRN (06:41)
[2023-04-01 06:58] LABS: BASOPHILS % (AUTO) 0.1 % (0.0-2.0); HEMATOCRIT 32 % (33-45); HEMOGLOBIN 10.4 g/dL (11.5-14.8); LYMPHOCYTES # (AUTO) 0.5 K/uL (0.8-4.8); MEAN CORPUSCULAR HEMOGLOBIN 29 PG (26.0-33.0); MEAN CORPUSCULAR HGB CONC 33 g/dl (31.0-36.0); MEAN CORPUSCULAR VOLUME 90 fL (82-100); MONOCYTES # (AUTO) 0.4 K/uL (0.1-1.30); MONOCYTES % (AUTO) 3.1 % (2.0-12.0); NEUTROPHILS % (AUTO) 92.8 % (43.0-81.0); PLATELET COUNT (AUTO) 143 K/uL (150-450); RED BLOOD CELL COUNT(AUTO) 3.56 MIL/uL (4.0-5.2); RED CELL DISTRIBUTION WIDTH 17.4 % (11.5-15.0); WHITE BLOOD COUNT (AUTO) 12.9 K/uL (4.3-11.0)
[2023-04-01 07:12] LABS: CALCIUM, SERUM 8.6 mg/dL (8.5-10.1); CARBON DIOXIDE 31 mmol/L (21-32); CHLORIDE 108 mmol/L (98-107); CREATININE 2.1 mg/dL (0.6-1.3); GLUCOSE 168 mg/dL (74-106); POTASSIUM 3.9 mmol/L (3.5-5.1); SODIUM SERUM 144 mmol/L (136-145); UREA NITROGEN, BLOOD 76 mg/dL (7-18)
[2023-04-01] MEDS: CALCIUM ACETATE 667 MG CAP/TAB PO SCH ×2 (08:00→12:23)
[2023-04-01] MEDS: LEVOTHYROXINE INJ 100 MCG VIAL IV SCH (08:10)
[2023-04-01] MEDS: methylPREDNISolone SOD SUCC 40 MG/ML VIAL IV SCH (08:11)
[2023-04-01] MEDS: BLOOD SUGAR DIAGNOSTIC 1 EACH STRIP IN SCH ×4 (08:16→22:31)
[2023-04-01] MEDS: INSULIN REGULAR, HUMAN 100 UNIT/ML 3 ML VIAL SQ PRN ×4 (08:16→22:36)
[2023-04-01] MEDS: CARVEDILOL 12.5 MG TABLET PO SCH ×2 (08:20→16:36)
[2023-04-01] MEDS: PANTOPRAZOLE 40 MG TABLET.DR PO SCH (08:21)
[2023-04-01] MEDS: AMLODIPINE BESYLATE 10 MG TABLET PO SCH (08:21)
[2023-04-01] MEDS: POLYETHYLENE GLYCOL 3350 17 GM POWD.PACK PO SCH (08:21)
[2023-04-01] MEDS: DIVALPROEX SODIUM 125 MG CAP.SPRINK PO SCH (08:21)
[2023-04-01] MEDS: NITROGLYCERIN PACKET 1 GM PACKET TOP SCH ×2 (09:24→22:24)
[2023-04-01] MEDS ORDERED: LABETALOL HCL IV 100MG VIAL ONE (10:11)
[2023-04-01] MEDS ORDERED: hydrALAZINE HCL IV 20 MG VIAL IV PRN (12:00)
[2023-04-01] MEDS ORDERED: ETOMIDATE 2 MG/ML VIAL ONE (12:13)
[2023-04-01] MEDS: CALCIUM ACETATE 667 MG CAP/TAB NG SCH ×2 (13:00→16:37)
[2023-04-01] MEDS ORDERED: ANESTHESIA TRAY IN PYXIS 1 EA TRAY MC ONE (15:11)
[2023-04-01] MEDS ORDERED: VANCOMYCIN 1 GM in IV D5W 250ml IV ONE (16:00)
[2023-04-01] MEDS: PANTOPRAZOLE 40 MG/PACK PACK NG SCH (16:36)
[2023-04-01] MEDS: CARVEDILOL 12.5 MG TABLET NG SCH (17:00)
[2023-04-01] MEDS: DIVALPROEX SODIUM 125 MG CAP.SPRINK NG SCH (21:00)
[2023-04-01] MEDS: LORAZEPAM 0.5 MG TABLET NG PRN (22:56)
[2023-04-02] VITALS (11 sets, daily range): BP systolic 134–180; BP diastolic 56–100; TEMP 96.5–98.4; O2SAT 94–100
[2023-04-02] MEDS: CEFEPIME 1 GM in IV D5W 50 ML IV SCH ×2 (01:13→14:49)
[2023-04-02] MEDS: IPRATROPIUM NEB FS 0.5 MG/2.5 ML AMPUL.NEB NEB SCH ×4 (01:53→19:58)
[2023-04-02] MEDS: ALBUTEROL HALF STRENGTH 1.25 MG/3 ML VIAL.NEB NEB SCH ×4 (01:53→19:58)
[2023-04-02 07:35] LABS: BASOPHILS # (AUTO) 0.1 K/uL (0.0-0.2); BASOPHILS % (AUTO) 0.7 % (0.0-2.0); EOSINOPHILS # (AUTO) 0.1 K/uL (0.0-0.7); EOSINOPHILS % (AUTO) 0.9 % (0.0-6.0); HEMATOCRIT 35 % (33-45); HEMOGLOBIN 11.1 g/dL (11.5-14.8); LYMPHOCYTES # (AUTO) 0.6 K/uL (0.8-4.8); LYMPHOCYTES % (AUTO) 4.9 % (20.0-44.0); MEAN CORPUSCULAR HEMOGLOBIN 29 PG (26.0-33.0); MEAN CORPUSCULAR HGB CONC 32 g/dl (31.0-36.0); MEAN CORPUSCULAR VOLUME 90 fL (82-100); MONOCYTES # (AUTO) 0.6 K/uL (0.1-1.30); MONOCYTES % (AUTO) 5.3 % (2.0-12.0); NEUTROPHILS % (AUTO) 88.2 % (43.0-81.0); PLATELET COUNT (AUTO) 141 K/uL (150-450); RED BLOOD CELL COUNT(AUTO) 3.89 MIL/uL (4.0-5.2); RED CELL DISTRIBUTION WIDTH 17.2 % (11.5-15.0); WHITE BLOOD COUNT (AUTO) 11.4 K/uL (4.3-11.0)
[2023-04-02 08:07] LABS: CALCIUM, SERUM 8.8 mg/dL (8.5-10.1); CARBON DIOXIDE 28 mmol/L (21-32); CHLORIDE 107 mmol/L (98-107); CREATININE 1.8 mg/dL (0.6-1.3); GLUCOSE 164 mg/dL (74-106); POTASSIUM 3.7 mmol/L (3.5-5.1); SODIUM SERUM 142 mmol/L (136-145); UREA NITROGEN, BLOOD 68 mg/dL (7-18)
[2023-04-02] MEDS: LEVOTHYROXINE INJ 100 MCG VIAL IV SCH (08:17)
[2023-04-02] MEDS: BLOOD SUGAR DIAGNOSTIC 1 EACH STRIP IN SCH ×4 (08:29→21:20)
[2023-04-02] MEDS: methylPREDNISolone SOD SUCC 40 MG/ML VIAL IV SCH (08:36)
[2023-04-02] MEDS: CARVEDILOL 12.5 MG TABLET NG SCH ×2 (08:36→16:16)
[2023-04-02] MEDS: CALCIUM ACETATE 667 MG CAP/TAB NG SCH ×3 (08:37→17:09)
[2023-04-02] MEDS: DIVALPROEX SODIUM 125 MG CAP.SPRINK NG SCH ×2 (08:37→20:48)
[2023-04-02] MEDS: AMLODIPINE BESYLATE 10 MG TABLET NG SCH (08:37)
[2023-04-02] MEDS: NITROGLYCERIN PACKET 1 GM PACKET TOP SCH ×2 (08:38→20:49)
[2023-04-02] MEDS: PANTOPRAZOLE 40 MG/PACK PACK NG SCH ×2 (08:45→16:16)
[2023-04-02] MEDS: POLYETHYLENE GLYCOL 3350 17 GM POWD.PACK NG SCH (08:45)
[2023-04-02] MEDS: INSULIN REGULAR, HUMAN 100 UNIT/ML 3 ML VIAL SQ PRN ×4 (08:47→21:22)
[2023-04-02] MEDS: GLUCERNA 1.2 1,000 ML BOTTLE NG PRN (09:26)
[2023-04-02] MEDS: ACETAMINOPHEN 650 MG/20.3 ML UDC NG PRN (12:31)
[2023-04-02] MEDS: hydrALAZINE HCL IV 20 MG VIAL IV PRN (12:32)
[2023-04-02] MEDS: VANCOMYCIN 500 MG in IV D5W 100ml IV SCH (16:20)
[2023-04-03] VITALS (12 sets, daily range): BP systolic 103–185; BP diastolic 50–112; TEMP 97.5–98.3; O2SAT 96–100
[2023-04-03] MEDS: CEFEPIME 1 GM in IV D5W 50 ML IV SCH ×2 (01:40→13:39)
[2023-04-03] MEDS: IPRATROPIUM NEB FS 0.5 MG/2.5 ML AMPUL.NEB NEB SCH ×4 (01:43→20:05)
[2023-04-03] MEDS: ALBUTEROL HALF STRENGTH 1.25 MG/3 ML VIAL.NEB NEB SCH ×4 (01:43→20:05)
[2023-04-03] MEDS: ACETAMINOPHEN 650 MG/20.3 ML UDC NG PRN (02:01)
[2023-04-03 06:37] LABS: BASOPHILS % (AUTO) 0.2 % (0.0-2.0); EOSINOPHILS % (AUTO) 0.1 % (0.0-6.0); HEMATOCRIT 33 % (33-45); HEMOGLOBIN 10.7 g/dL (11.5-14.8); LYMPHOCYTES # (AUTO) 0.5 K/uL (0.8-4.8); LYMPHOCYTES % (AUTO) 5.6 % (20.0-44.0); MEAN CORPUSCULAR HEMOGLOBIN 29 PG (26.0-33.0); MEAN CORPUSCULAR HGB CONC 33 g/dl (31.0-36.0); MEAN CORPUSCULAR VOLUME 90 fL (82-100); MONOCYTES # (AUTO) 0.3 K/uL (0.1-1.30); MONOCYTES % (AUTO) 3.6 % (2.0-12.0); NEUTROPHILS # (AUTO) 7.7 K/uL (1.8-8.9); NEUTROPHILS % (AUTO) 90.5 % (43.0-81.0); PLATELET COUNT (AUTO) 109 K/uL (150-450); RED BLOOD CELL COUNT(AUTO) 3.64 MIL/uL (4.0-5.2); RED CELL DISTRIBUTION WIDTH 16.7 % (11.5-15.0); WHITE BLOOD COUNT (AUTO) 8.6 K/uL (4.3-11.0)
[2023-04-03 06:52] LABS: CALCIUM, SERUM 8.4 mg/dL (8.5-10.1); CARBON DIOXIDE 30 mmol/L (21-32); CHLORIDE 106 mmol/L (98-107); CREATININE 1.9 mg/dL (0.6-1.3); GLUCOSE 195 mg/dL (74-106); POTASSIUM 3.9 mmol/L (3.5-5.1); SODIUM SERUM 141 mmol/L (136-145); UREA NITROGEN, BLOOD 65 mg/dL (7-18)
[2023-04-03] MEDS: BLOOD SUGAR DIAGNOSTIC 1 EACH STRIP IN SCH ×4 (07:06→22:08)
[2023-04-03] MEDS: INSULIN REGULAR, HUMAN 100 UNIT/ML 3 ML VIAL SQ PRN ×4 (07:07→22:41)
[2023-04-03] MEDS: LEVOTHYROXINE INJ 100 MCG VIAL IV SCH (07:56)
[2023-04-03] MEDS: CALCIUM ACETATE 667 MG CAP/TAB NG SCH (07:56)
[2023-04-03] MEDS: CARVEDILOL 12.5 MG TABLET NG SCH ×2 (08:18→16:32)
[2023-04-03] MEDS: methylPREDNISolone SOD SUCC 40 MG/ML VIAL IV SCH (08:18)
[2023-04-03] MEDS: PANTOPRAZOLE 40 MG/PACK PACK NG SCH ×2 (08:18→16:32)
[2023-04-03] MEDS: POLYETHYLENE GLYCOL 3350 17 GM POWD.PACK NG SCH (08:19)
[2023-04-03] MEDS: DIVALPROEX SODIUM 125 MG CAP.SPRINK NG SCH ×2 (08:19→22:08)
[2023-04-03] MEDS: AMLODIPINE BESYLATE 10 MG TABLET NG SCH (08:19)
[2023-04-03] MEDS: NITROGLYCERIN PACKET 1 GM PACKET TOP SCH ×2 (08:19→22:07)
[2023-04-03] MEDS: VANCOMYCIN 500 MG in IV D5W 100ml IV SCH (15:01)
[2023-04-03] MEDS: GLUCERNA 1.2 1,000 ML BOTTLE NG PRN (15:28)
[2023-04-04] VITALS (12 sets, daily range): BP systolic 144–153; BP diastolic 60–68; TEMP 97–98.1; O2SAT 92–100
[2023-04-04] MEDS: LORAZEPAM INJ 2 MG/ML VIAL IV PRN ×2 (01:07→12:56)
[2023-04-04] MEDS ORDERED: DIATR MEGLU/DIATRIZOATE SODIUM 30 ML BOTTLE (GASTROGRAPHIN) ONE (01:16)
[2023-04-04] MEDS: CEFEPIME 1 GM in IV D5W 50 ML IV SCH ×2 (01:41→14:24)
[2023-04-04] MEDS: IPRATROPIUM NEB FS 0.5 MG/2.5 ML AMPUL.NEB NEB SCH ×4 (02:07→20:06)
[2023-04-04] MEDS: ALBUTEROL HALF STRENGTH 1.25 MG/3 ML VIAL.NEB NEB SCH ×4 (02:07→20:06)
[2023-04-04 06:41] LABS: BASOPHILS # (AUTO) 0.1 K/uL (0.0-0.2); BASOPHILS % (AUTO) 0.3 % (0.0-2.0); EOSINOPHILS % (AUTO) 0.1 % (0.0-6.0); HEMATOCRIT 33 % (33-45); HEMOGLOBIN 10.9 g/dL (11.5-14.8); LYMPHOCYTES # (AUTO) 0.4 K/uL (0.8-4.8); LYMPHOCYTES % (AUTO) 2.1 % (20.0-44.0); MEAN CORPUSCULAR HEMOGLOBIN 29 PG (26.0-33.0); MEAN CORPUSCULAR HGB CONC 33 g/dl (31.0-36.0); MEAN CORPUSCULAR VOLUME 89 fL (82-100); MONOCYTES # (AUTO) 0.6 K/uL (0.1-1.30); MONOCYTES % (AUTO) 3.5 % (2.0-12.0); NEUTROPHILS # (AUTO) 17.3 K/uL (1.8-8.9); PLATELET COUNT (AUTO) 131 K/uL (150-450); WHITE BLOOD COUNT (AUTO) 18.4 K/uL (4.3-11.0)
[2023-04-04 06:59] LABS: CALCIUM, SERUM 8.5 mg/dL (8.5-10.1); CARBON DIOXIDE 29 mmol/L (21-32); CHLORIDE 106 mmol/L (98-107); CREATININE 1.8 mg/dL (0.6-1.3); GLUCOSE 135 mg/dL (74-106); POTASSIUM 3.8 mmol/L (3.5-5.1); SODIUM SERUM 141 mmol/L (136-145); UREA NITROGEN, BLOOD 67 mg/dL (7-18)
[2023-04-04] MEDS: LEVOTHYROXINE SODIUM 50 MCG TABLET GT SCH (07:30)
[2023-04-04] MEDS: BLOOD SUGAR DIAGNOSTIC 1 EACH STRIP IN SCH ×4 (08:29→22:03)
[2023-04-04] MEDS: CARVEDILOL 12.5 MG TABLET NG SCH ×2 (09:00→16:21)
[2023-04-04] MEDS: methylPREDNISolone SOD SUCC 40 MG/ML VIAL IV SCH (09:00)
[2023-04-04] MEDS: POLYETHYLENE GLYCOL 3350 17 GM POWD.PACK NG SCH (09:00)
[2023-04-04] MEDS: NITROGLYCERIN PACKET 1 GM PACKET TOP SCH ×2 (09:00→22:03)
[2023-04-04] MEDS: AMLODIPINE BESYLATE 10 MG TABLET NG SCH (09:00)
[2023-04-04] MEDS: PANTOPRAZOLE 40 MG/PACK PACK NG SCH ×2 (09:00→16:22)
[2023-04-04] MEDS: DIVALPROEX SODIUM 125 MG CAP.SPRINK NG SCH ×2 (09:00→21:00)
[2023-04-04] MEDS ORDERED: IOHEXOL-300 100 ML VIAL IV ONE (15:21)
[2023-04-04] MEDS: VANCOMYCIN 500 MG in IV D5W 100ml IV SCH (16:21)
[2023-04-04] MEDS: INSULIN REGULAR, HUMAN 100 UNIT/ML 3 ML VIAL SQ PRN ×2 (17:30→22:08)
[2023-04-04] MEDS ORDERED: MORPHINE SULFATE INJ 2 MG/ML DISP.SYRIN IV PRN (20:30)
[2023-04-04] MEDS ORDERED: OLANZAPINE 10 MG VIAL IM PRN (20:30)
[2023-04-04] MEDS: HYDROMORPHONE 1 MG/1 ML DISP.SYRIN IV PRN (23:08)
[2023-04-05] VITALS (12 sets, daily range): BP systolic 147–166; BP diastolic 51–65; TEMP 98.2–99; O2SAT 92–100
[2023-04-05] MEDS: ALBUTEROL HALF STRENGTH 1.25 MG/3 ML VIAL.NEB NEB SCH ×4 (02:02→19:58)
[2023-04-05] MEDS: IPRATROPIUM NEB FS 0.5 MG/2.5 ML AMPUL.NEB NEB SCH ×4 (02:02→19:58)
[2023-04-05] MEDS: CEFEPIME 1 GM in IV D5W 50 ML IV SCH ×2 (03:02→14:14)
[2023-04-05 07:17] LABS: BASOPHILS % (AUTO) 0.1 % (0.0-2.0); HEMATOCRIT 31 % (33-45); LYMPHOCYTES # (AUTO) 0.5 K/uL (0.8-4.8); MEAN CORPUSCULAR HEMOGLOBIN 29 PG (26.0-33.0); MEAN CORPUSCULAR HGB CONC 32 g/dl (31.0-36.0); MEAN CORPUSCULAR VOLUME 90 fL (82-100); MONOCYTES # (AUTO) 0.7 K/uL (0.1-1.30); MONOCYTES % (AUTO) 2.8 % (2.0-12.0); NEUTROPHILS # (AUTO) 23.5 K/uL (1.8-8.9); NEUTROPHILS % (AUTO) 95.1 % (43.0-81.0); PLATELET COUNT (AUTO) 114 K/uL (150-450); RED BLOOD CELL COUNT(AUTO) 3.46 MIL/uL (4.0-5.2); RED CELL DISTRIBUTION WIDTH 17.1 % (11.5-15.0); WHITE BLOOD COUNT (AUTO) 24.7 K/uL (4.3-11.0)
[2023-04-05 07:27] LABS: CALCIUM, SERUM 8.3 mg/dL (8.5-10.1); CARBON DIOXIDE 30 mmol/L (21-32); CHLORIDE 106 mmol/L (98-107); CREATININE 1.9 mg/dL (0.6-1.3); GLUCOSE 183 mg/dL (74-106); MAGNESIUM 1.7 mg/dL (1.8-2.4); POTASSIUM 3.8 mmol/L (3.5-5.1); SODIUM SERUM 142 mmol/L (136-145); UREA NITROGEN, BLOOD 66 mg/dL (7-18)
[2023-04-05] MEDS: LEVOTHYROXINE SODIUM 50 MCG TABLET GT SCH (07:30)
[2023-04-05] MEDS: BLOOD SUGAR DIAGNOSTIC 1 EACH STRIP IN SCH ×4 (07:37→22:48)
[2023-04-05] MEDS: INSULIN REGULAR, HUMAN 100 UNIT/ML 3 ML VIAL SQ PRN ×3 (07:51→17:13)
[2023-04-05] MEDS: NITROGLYCERIN PACKET 1 GM PACKET TOP SCH ×2 (08:22→21:04)
[2023-04-05] MEDS: methylPREDNISolone SOD SUCC 40 MG/ML VIAL IV SCH (08:24)
[2023-04-05] MEDS: CARVEDILOL 12.5 MG TABLET NG SCH ×2 (08:25→16:39)
[2023-04-05] MEDS: PANTOPRAZOLE 40 MG/PACK PACK NG SCH ×2 (08:26→16:40)
[2023-04-05] MEDS: DIVALPROEX SODIUM 125 MG CAP.SPRINK NG SCH ×2 (08:26→20:22)
[2023-04-05] MEDS: AMLODIPINE BESYLATE 10 MG TABLET NG SCH (08:26)
[2023-04-05] MEDS: POLYETHYLENE GLYCOL 3350 17 GM POWD.PACK NG SCH (08:26)
[2023-04-05] MEDS ORDERED: Magnesium 1GM/D5W 100ML PREMIX 100 ML IV SCH (10:00)
[2023-04-05] MEDS: VANCOMYCIN 500 MG in IV D5W 100ml IV SCH (16:50)
[2023-04-05] MEDS: HYDROMORPHONE 1 MG/1 ML DISP.SYRIN IV PRN (21:08)
[2023-04-05] MEDS: IV D5/ 0.9% NACL 1,000 ML IV PRN (22:54)
[2023-04-06] VITALS (11 sets, daily range): BP systolic 133–159; BP diastolic 54–101; TEMP 97.2–97.6; O2SAT 87–99
[2023-04-06] MEDS: IPRATROPIUM NEB FS 0.5 MG/2.5 ML AMPUL.NEB NEB SCH ×4 (02:00→19:14)
[2023-04-06] MEDS: ALBUTEROL HALF STRENGTH 1.25 MG/3 ML VIAL.NEB NEB SCH ×4 (02:00→19:14)
[2023-04-06] MEDS: CEFEPIME 1 GM in IV D5W 50 ML IV SCH ×2 (02:16→14:27)
[2023-04-06 07:25] LABS: BASOPHILS % (AUTO) 0.1 % (0.0-2.0); HEMATOCRIT 32 % (33-45); HEMOGLOBIN 10.1 g/dL (11.5-14.8); LYMPHOCYTES # (AUTO) 0.6 K/uL (0.8-4.8); LYMPHOCYTES % (AUTO) 2.3 % (20.0-44.0); MEAN CORPUSCULAR HEMOGLOBIN 29 PG (26.0-33.0); MEAN CORPUSCULAR HGB CONC 32 g/dl (31.0-36.0); MEAN CORPUSCULAR VOLUME 90 fL (82-100); MONOCYTES # (AUTO) 0.9 K/uL (0.1-1.30); MONOCYTES % (AUTO) 3.5 % (2.0-12.0); NEUTROPHILS # (AUTO) 23.3 K/uL (1.8-8.9); NEUTROPHILS % (AUTO) 94.1 % (43.0-81.0); PLATELET COUNT (AUTO) 108 K/uL (150-450); RED BLOOD CELL COUNT(AUTO) 3.49 MIL/uL (4.0-5.2); RED CELL DISTRIBUTION WIDTH 16.8 % (11.5-15.0); WHITE BLOOD COUNT (AUTO) 24.7 K/uL (4.3-11.0)
[2023-04-06 07:31] LABS: CALCIUM, SERUM 8.5 mg/dL (8.5-10.1); CARBON DIOXIDE 30 mmol/L (21-32); CHLORIDE 108 mmol/L (98-107); CREATININE 1.7 mg/dL (0.6-1.3); GLUCOSE 90 mg/dL (74-106); MAGNESIUM 1.9 mg/dL (1.8-2.4); PHOSPHORUS 3.9 mg/dL (2.5-4.9); POTASSIUM 3.6 mmol/L (3.5-5.1); SODIUM SERUM 143 mmol/L (136-145); UREA NITROGEN, BLOOD 56 mg/dL (7-18)
[2023-04-06] MEDS: LEVOTHYROXINE SODIUM 50 MCG TABLET GT SCH (07:48)
[2023-04-06] MEDS: BLOOD SUGAR DIAGNOSTIC 1 EACH STRIP IN SCH ×4 (08:02→22:19)
[2023-04-06] MEDS: INSULIN REGULAR, HUMAN 100 UNIT/ML 3 ML VIAL SQ PRN ×4 (08:08→22:24)
[2023-04-06] MEDS: POLYETHYLENE GLYCOL 3350 17 GM POWD.PACK NG SCH (09:00)
[2023-04-06] MEDS: methylPREDNISolone SOD SUCC 40 MG/ML VIAL IV SCH (09:20)
[2023-04-06] MEDS: DIVALPROEX SODIUM 125 MG CAP.SPRINK NG SCH ×2 (09:20→20:51)
[2023-04-06] MEDS: PANTOPRAZOLE 40 MG/PACK PACK NG SCH ×2 (09:21→16:55)
[2023-04-06] MEDS: NITROGLYCERIN PACKET 1 GM PACKET TOP SCH ×2 (09:21→20:55)
[2023-04-06] MEDS: CARVEDILOL 12.5 MG TABLET NG SCH ×2 (09:21→16:27)
[2023-04-06] MEDS: AMLODIPINE BESYLATE 10 MG TABLET NG SCH (09:21)
[2023-04-06] MEDS: GLUCERNA 1.2 1,000 ML BOTTLE GT PRN (09:21)
[2023-04-06] MEDS: IV D5/ 0.9% NACL 1,000 ML IV PRN (14:42)
[2023-04-06] MEDS: GLUCERNA 1.2 1,000 ML BOTTLE NG PRN (15:55)
[2023-04-06] MEDS: VANCOMYCIN 500 MG in IV D5W 100ml IV SCH (16:25)
[2023-04-06] MEDS: ACETAMINOPHEN 650 MG/20.3 ML UDC NG PRN (20:42)
[2023-04-07] VITALS (10 sets, daily range): BP systolic 145–189; BP diastolic 58–85; TEMP 97.3–98.2; O2SAT 93–96
[2023-04-07] MEDS: IPRATROPIUM NEB FS 0.5 MG/2.5 ML AMPUL.NEB NEB SCH ×4 (01:24→20:06)
[2023-04-07] MEDS: ALBUTEROL HALF STRENGTH 1.25 MG/3 ML VIAL.NEB NEB SCH ×4 (01:24→20:06)
[2023-04-07] MEDS: CEFEPIME 1 GM in IV D5W 50 ML IV SCH ×2 (02:25→12:44)
[2023-04-07] MEDS: LORAZEPAM 0.5 MG TABLET NG PRN (03:06)
[2023-04-07] MEDS: INSULIN REGULAR, HUMAN 100 UNIT/ML 3 ML VIAL SQ PRN ×4 (06:46→22:58)
[2023-04-07] MEDS: IV D5/ 0.9% NACL 1,000 ML IV PRN ×2 (06:50→23:59)
[2023-04-07 07:05] LABS: HEMATOCRIT 30 % (33-45); HEMOGLOBIN 9.4 g/dL (11.5-14.8); LYMPHOCYTES # (AUTO) 0.4 K/uL (0.8-4.8); LYMPHOCYTES % (AUTO) 2.6 % (20.0-44.0); MEAN CORPUSCULAR HEMOGLOBIN 28 PG (26.0-33.0); MEAN CORPUSCULAR HGB CONC 32 g/dl (31.0-36.0); MEAN CORPUSCULAR VOLUME 89 fL (82-100); MONOCYTES # (AUTO) 0.4 K/uL (0.1-1.30); MONOCYTES % (AUTO) 2.4 % (2.0-12.0); NEUTROPHILS # (AUTO) 14.6 K/uL (1.8-8.9); PLATELET COUNT (AUTO) 98 K/uL (150-450); RED BLOOD CELL COUNT(AUTO) 3.32 MIL/uL (4.0-5.2); WHITE BLOOD COUNT (AUTO) 15.4 K/uL (4.3-11.0)
[2023-04-07] MEDS: LEVOTHYROXINE SODIUM 50 MCG TABLET GT SCH (07:35)
[2023-04-07] MEDS: BLOOD SUGAR DIAGNOSTIC 1 EACH STRIP IN SCH ×4 (07:35→22:38)
[2023-04-07 07:54] LABS: CALCIUM, SERUM 8.3 mg/dL (8.5-10.1); CARBON DIOXIDE 24 mmol/L (21-32); CHLORIDE 109 mmol/L (98-107); CREATININE 1.8 mg/dL (0.6-1.3); GLUCOSE 262 mg/dL (74-106); MAGNESIUM 1.8 mg/dL (1.8-2.4); PHOSPHORUS 3.8 mg/dL (2.5-4.9); POTASSIUM 3.4 mmol/L (3.5-5.1); SODIUM SERUM 143 mmol/L (136-145); UREA NITROGEN, BLOOD 54 mg/dL (7-18)
[2023-04-07] MEDS: methylPREDNISolone SOD SUCC 40 MG/ML VIAL IV SCH (08:26)
[2023-04-07] MEDS: DIVALPROEX SODIUM 125 MG CAP.SPRINK NG SCH ×2 (08:26→20:55)
[2023-04-07] MEDS: CARVEDILOL 12.5 MG TABLET NG SCH ×2 (08:27→16:09)
[2023-04-07] MEDS: POLYETHYLENE GLYCOL 3350 17 GM POWD.PACK NG SCH (08:27)
[2023-04-07] MEDS: PANTOPRAZOLE 40 MG/PACK PACK NG SCH ×2 (08:28→16:09)
[2023-04-07] MEDS: AMLODIPINE BESYLATE 10 MG TABLET NG SCH (08:28)
[2023-04-07] MEDS: NITROGLYCERIN PACKET 1 GM PACKET TOP SCH ×2 (08:28→20:54)
[2023-04-07] MEDS: CLONIDINE HCL 0.3 MG/24H PTWK 1 EA PATCH TD SCH (08:29)
[2023-04-07] MEDS ORDERED: POTASSIUM CL. PREMIX PERIPHER. 50 ML IV SCH (10:00)
[2023-04-07] MEDS ORDERED: POTASSIUM CHLORIDE 20 MEQ POWDER PACKET GT ONE (10:00)
[2023-04-07] MEDS: HYDROMORPHONE 1 MG/1 ML DISP.SYRIN IV PRN (12:57)
[2023-04-07 14:58] LABS: LYMPHOCYTES % (MANUAL) 3 % (16-48); MONOCYTES % (MANUAL) 2 % (0-11.0); NEUTROPHILS % (MANUAL) 95 (42-76); PLATELET ESTIMATE DECREASED
[2023-04-07 14:59] LABS: ANISOCYTOSIS 1+; OVALOCYTES 1+
[2023-04-07] MEDS: VANCOMYCIN 500 MG in IV D5W 100ml IV SCH (15:09)
[2023-04-07] MEDS: ACETAMINOPHEN 650 MG/20.3 ML UDC NG PRN (20:54)
[2023-04-07] MEDS: GLUCERNA 1.2 1,000 ML BOTTLE GT PRN (23:59)
[2023-04-08] VITALS (12 sets, daily range): BP systolic 150–186; BP diastolic 58–68; TEMP 96.8–98.5; O2SAT 92–98
[2023-04-08] MEDS: HYDROMORPHONE 1 MG/1 ML DISP.SYRIN IV PRN
[2023-04-08] MEDS: ALBUTEROL HALF STRENGTH 1.25 MG/3 ML VIAL.NEB NEB SCH ×4 (01:19→19:44)
[2023-04-08] MEDS: IPRATROPIUM NEB FS 0.5 MG/2.5 ML AMPUL.NEB NEB SCH ×4 (01:19→19:44)
[2023-04-08] MEDS: CEFEPIME 1 GM in IV D5W 50 ML IV SCH ×2 (02:37→13:37)
[2023-04-08] MEDS: ACETAMINOPHEN 650 MG/20.3 ML UDC NG PRN ×2 (04:55→11:23)
[2023-04-08] MEDS: hydrALAZINE HCL IV 20 MG VIAL IV PRN (04:56)
[2023-04-08 07:02] LABS: HEMATOCRIT 32 % (33-45); LYMPHOCYTES # (AUTO) 0.4 K/uL (0.8-4.8); LYMPHOCYTES % (AUTO) 2.1 % (20.0-44.0); MEAN CORPUSCULAR HEMOGLOBIN 29 PG (26.0-33.0); MEAN CORPUSCULAR HGB CONC 32 g/dl (31.0-36.0); MEAN CORPUSCULAR VOLUME 91 fL (82-100); MONOCYTES # (AUTO) 0.5 K/uL (0.1-1.30); MONOCYTES % (AUTO) 2.4 % (2.0-12.0); NEUTROPHILS # (AUTO) 20.3 K/uL (1.8-8.9); NEUTROPHILS % (AUTO) 95.5 % (43.0-81.0); PLATELET COUNT (AUTO) 150 K/uL (150-450); RED CELL DISTRIBUTION WIDTH 17.3 % (11.5-15.0); WHITE BLOOD COUNT (AUTO) 21.2 K/uL (4.3-11.0)
[2023-04-08 07:30] LABS: CALCIUM, SERUM 8.4 mg/dL (8.5-10.1); CARBON DIOXIDE 20 mmol/L (21-32); CHLORIDE 109 mmol/L (98-107); CREATININE 1.8 mg/dL (0.6-1.3); GLUCOSE 202 mg/dL (74-106); MAGNESIUM 1.9 mg/dL (1.8-2.4); PHOSPHORUS 3.8 mg/dL (2.5-4.9); POTASSIUM 3.6 mmol/L (3.5-5.1); SODIUM SERUM 141 mmol/L (136-145); UREA NITROGEN, BLOOD 51 mg/dL (7-18)
[2023-04-08] MEDS: PANTOPRAZOLE 40 MG/PACK PACK NG SCH ×2 (08:23→16:17)
[2023-04-08] MEDS: POLYETHYLENE GLYCOL 3350 17 GM POWD.PACK NG SCH (08:23)
[2023-04-08] MEDS: LEVOTHYROXINE SODIUM 50 MCG TABLET GT SCH (08:24)
[2023-04-08] MEDS: methylPREDNISolone SOD SUCC 40 MG/ML VIAL IV SCH (08:24)
[2023-04-08] MEDS: DIVALPROEX SODIUM 125 MG CAP.SPRINK NG SCH ×2 (08:24→21:32)
[2023-04-08] MEDS: BLOOD SUGAR DIAGNOSTIC 1 EACH STRIP IN SCH ×4 (08:25→21:55)
[2023-04-08] MEDS: CARVEDILOL 12.5 MG TABLET NG SCH ×2 (08:30→16:19)
[2023-04-08] MEDS: AMLODIPINE BESYLATE 10 MG TABLET NG SCH (08:31)
[2023-04-08] MEDS: NITROGLYCERIN PACKET 1 GM PACKET TOP SCH ×2 (08:31→21:32)
[2023-04-08] MEDS ORDERED: TRAMADOL HCL 50 MG TABLET PO PRN (10:00)
[2023-04-08] MEDS: QUETIAPINE FUMARATE 25 MG TABLET PO SCH ×2 (11:24→16:17)
[2023-04-08] MEDS: ACETAMINOPHEN 650 MG/SUPP.RECT RC SCH ×3 (11:27→16:17)
[2023-04-08] MEDS: VANCOMYCIN 500 MG in IV D5W 100ml IV SCH (16:17)
[2023-04-08] MEDS: MEROPENEM 1 G in IV NS 0.9% 100 ML IV SCH (21:32)
[2023-04-08] MEDS: INSULIN REGULAR, HUMAN 100 UNIT/ML 3 ML VIAL SQ PRN (21:55)
[2023-04-09] VITALS (12 sets, daily range): BP systolic 159–186; BP diastolic 57–73; TEMP 97.3–98.6; O2SAT 93–100
[2023-04-09] MEDS: IPRATROPIUM NEB FS 0.5 MG/2.5 ML AMPUL.NEB NEB SCH ×4 (01:27→20:23)
[2023-04-09] MEDS: ALBUTEROL HALF STRENGTH 1.25 MG/3 ML VIAL.NEB NEB SCH ×4 (01:27→20:23)
[2023-04-09] MEDS: GLUCERNA 1.2 1,000 ML BOTTLE GT PRN (02:48)
[2023-04-09] MEDS: BLOOD SUGAR DIAGNOSTIC 1 EACH STRIP IN SCH ×4 (08:18→22:22)
[2023-04-09] MEDS: POLYETHYLENE GLYCOL 3350 17 GM POWD.PACK NG SCH (08:18)
[2023-04-09] MEDS: DIVALPROEX SODIUM 125 MG CAP.SPRINK NG SCH ×2 (08:19→21:28)
[2023-04-09] MEDS: ACETAMINOPHEN 650 MG/SUPP.RECT RC SCH ×3 (08:19→16:45)
[2023-04-09] MEDS: NITROGLYCERIN PACKET 1 GM PACKET TOP SCH ×2 (08:19→21:26)
[2023-04-09] MEDS: ZINC SULFATE 220 MG CAPSULE NG SCH (08:19)
[2023-04-09] MEDS: AMLODIPINE BESYLATE 10 MG TABLET NG SCH (08:20)
[2023-04-09] MEDS: CARVEDILOL 12.5 MG TABLET NG SCH ×2 (08:20→16:50)
[2023-04-09] MEDS: LEVOTHYROXINE SODIUM 50 MCG TABLET GT SCH (08:20)
[2023-04-09] MEDS: PANTOPRAZOLE 40 MG/PACK PACK NG SCH ×2 (08:20→16:45)
[2023-04-09] MEDS: QUETIAPINE FUMARATE 25 MG TABLET PO SCH ×2 (08:20→16:50)
[2023-04-09] MEDS: MEROPENEM 1 G in IV NS 0.9% 100 ML IV SCH ×2 (08:21→21:25)
[2023-04-09] MEDS: methylPREDNISolone SOD SUCC 40 MG/ML VIAL IV SCH (08:21)
[2023-04-09] MEDS: INSULIN REGULAR, HUMAN 100 UNIT/ML 3 ML VIAL SQ PRN ×3 (08:23→22:29)
[2023-04-09 09:36] LABS: BASOPHILS % (AUTO) 0.1 % (0.0-2.0); CALCIUM, SERUM 7.9 mg/dL (8.5-10.1); CARBON DIOXIDE 26 mmol/L (21-32); CHLORIDE 110 mmol/L (98-107); CREATININE 1.7 mg/dL (0.6-1.3); EOSINOPHILS % (AUTO) 0.2 % (0.0-6.0); GLUCOSE 185 mg/dL (74-106); HEMATOCRIT 32 % (33-45); LYMPHOCYTES # (AUTO) 0.4 K/uL (0.8-4.8); LYMPHOCYTES % (AUTO) 1.4 % (20.0-44.0); MAGNESIUM 1.7 mg/dL (1.8-2.4); MEAN CORPUSCULAR HEMOGLOBIN 28 PG (26.0-33.0); MEAN CORPUSCULAR HGB CONC 31 g/dl (31.0-36.0); MEAN CORPUSCULAR VOLUME 90 fL (82-100); MONOCYTES # (AUTO) 0.6 K/uL (0.1-1.30); MONOCYTES % (AUTO) 2.4 % (2.0-12.0); NEUTROPHILS # (AUTO) 26.2 K/uL (1.8-8.9); NEUTROPHILS % (AUTO) 95.9 % (43.0-81.0); PHOSPHORUS 3.9 mg/dL (2.5-4.9); PLATELET COUNT (AUTO) 152 K/uL (150-450); POTASSIUM 3.5 mmol/L (3.5-5.1); RED BLOOD CELL COUNT(AUTO) 3.58 MIL/uL (4.0-5.2); SODIUM SERUM 142 mmol/L (136-145); UREA NITROGEN, BLOOD 51 mg/dL (7-18); WHITE BLOOD COUNT (AUTO) 27.3 K/uL (4.3-11.0)
[2023-04-09] MEDS: FUROSEMIDE 20 MG/2 ML VIAL IV SCH ×2 (12:47→16:45)
[2023-04-09] MEDS: ENOXAPARIN SODIUM 60 MG/0.6 ML DISP.SYRIN SQ SCH (12:48)
[2023-04-09] MEDS: VANCOMYCIN 500 MG in IV D5W 100ml IV SCH (16:45)
[2023-04-09] MEDS: IV D5/ 0.9% NACL 1,000 ML IV PRN (20:52)
[2023-04-10] VITALS (12 sets, daily range): BP systolic 109–178; BP diastolic 45–94; TEMP 97.7–98.6; O2SAT 93–100
[2023-04-10] MEDS: ALBUTEROL HALF STRENGTH 1.25 MG/3 ML VIAL.NEB NEB SCH ×4 (01:56→20:05)
[2023-04-10] MEDS: IPRATROPIUM NEB FS 0.5 MG/2.5 ML AMPUL.NEB NEB SCH ×4 (01:56→20:05)
[2023-04-10] MEDS: GLUCERNA 1.2 1,000 ML BOTTLE GT PRN (02:53)
[2023-04-10] MEDS: BLOOD SUGAR DIAGNOSTIC 1 EACH STRIP IN SCH ×4 (05:56→23:24)
[2023-04-10] MEDS: INSULIN REGULAR, HUMAN 100 UNIT/ML 3 ML VIAL SQ PRN ×4 (06:16→23:27)
[2023-04-10 07:32] LABS: BASOPHILS % (AUTO) 0.2 % (0.0-2.0); HEMATOCRIT 30 % (33-45); HEMOGLOBIN 9.7 g/dL (11.5-14.8); LYMPHOCYTES # (AUTO) 0.5 K/uL (0.8-4.8); LYMPHOCYTES % (AUTO) 2.5 % (20.0-44.0); MEAN CORPUSCULAR HEMOGLOBIN 28 PG (26.0-33.0); MEAN CORPUSCULAR HGB CONC 32 g/dl (31.0-36.0); MEAN CORPUSCULAR VOLUME 88 fL (82-100); MONOCYTES # (AUTO) 0.3 K/uL (0.1-1.30); MONOCYTES % (AUTO) 1.7 % (2.0-12.0); NEUTROPHILS # (AUTO) 18.1 K/uL (1.8-8.9); NEUTROPHILS % (AUTO) 95.6 % (43.0-81.0); PLATELET COUNT (AUTO) 123 K/uL (150-450); RED BLOOD CELL COUNT(AUTO) 3.44 MIL/uL (4.0-5.2); RED CELL DISTRIBUTION WIDTH 16.9 % (11.5-15.0)
[2023-04-10 08:05] LABS: CARBON DIOXIDE 23 mmol/L (21-32); CHLORIDE 109 mmol/L (98-107); CREATININE 1.7 mg/dL (0.6-1.3); GLUCOSE 178 mg/dL (74-106); MAGNESIUM 1.8 mg/dL (1.8-2.4); PHOSPHORUS 4.3 mg/dL (2.5-4.9); POTASSIUM 3.6 mmol/L (3.5-5.1); SODIUM SERUM 141 mmol/L (136-145); UREA NITROGEN, BLOOD 52 mg/dL (7-18)
[2023-04-10] MEDS: MEROPENEM 1 G in IV NS 0.9% 100 ML IV SCH ×2 (08:11→20:30)
[2023-04-10] MEDS: AMLODIPINE BESYLATE 10 MG TABLET NG SCH (08:19)
[2023-04-10] MEDS: FUROSEMIDE 20 MG/2 ML VIAL IV SCH ×2 (08:19→16:31)
[2023-04-10] MEDS: PANTOPRAZOLE 40 MG/PACK PACK NG SCH ×2 (08:19→16:30)
[2023-04-10] MEDS: POLYETHYLENE GLYCOL 3350 17 GM POWD.PACK NG SCH (08:19)
[2023-04-10] MEDS: LEVOTHYROXINE SODIUM 50 MCG TABLET GT SCH (08:19)
[2023-04-10] MEDS: ZINC SULFATE 220 MG CAPSULE NG SCH (08:19)
[2023-04-10] MEDS: QUETIAPINE FUMARATE 25 MG TABLET PO SCH ×2 (08:19→16:31)
[2023-04-10] MEDS: methylPREDNISolone SOD SUCC 40 MG/ML VIAL IV SCH (08:20)
[2023-04-10] MEDS: CARVEDILOL 12.5 MG TABLET NG SCH ×2 (08:20→16:31)
[2023-04-10 08:21] LABS: CALCIUM, SERUM 8.5 mg/dL (8.5-10.1)
[2023-04-10] MEDS: ACETAMINOPHEN 650 MG/SUPP.RECT RC SCH ×3 (08:21→16:43)
[2023-04-10] MEDS: NITROGLYCERIN PACKET 1 GM PACKET TOP SCH ×2 (08:21→21:05)
[2023-04-10] MEDS: DIVALPROEX SODIUM 125 MG CAP.SPRINK NG SCH ×2 (08:21→20:29)
[2023-04-10] MEDS: ENOXAPARIN SODIUM 60 MG/0.6 ML DISP.SYRIN SQ SCH (12:13)
[2023-04-10] MEDS: VANCOMYCIN 500 MG in IV D5W 100ml IV SCH (16:30)
[2023-04-10] MEDS: hydrALAZINE HCL IV 20 MG VIAL IV PRN (21:48)
[2023-04-11] VITALS (10 sets, daily range): BP systolic 104–178; BP diastolic 50–69; TEMP 98.1–98.9; O2SAT 93–99
[2023-04-11] MEDS: IPRATROPIUM NEB FS 0.5 MG/2.5 ML AMPUL.NEB NEB SCH ×4 (02:12→20:16)
[2023-04-11] MEDS: ALBUTEROL HALF STRENGTH 1.25 MG/3 ML VIAL.NEB NEB SCH ×4 (02:12→20:16)
[2023-04-11] MEDS: BLOOD SUGAR DIAGNOSTIC 1 EACH STRIP IN SCH ×3 (05:32→17:22)
[2023-04-11] MEDS: INSULIN REGULAR, HUMAN 100 UNIT/ML 3 ML VIAL SQ PRN ×3 (05:34→17:49)
[2023-04-11 07:16] LABS: BASOPHILS % (AUTO) 0.1 % (0.0-2.0); HEMATOCRIT 28 % (33-45); HEMOGLOBIN 9.1 g/dL (11.5-14.8); LYMPHOCYTES # (AUTO) 0.7 K/uL (0.8-4.8); LYMPHOCYTES % (AUTO) 4.8 % (20.0-44.0); MEAN CORPUSCULAR HEMOGLOBIN 29 PG (26.0-33.0); MEAN CORPUSCULAR HGB CONC 32 g/dl (31.0-36.0); MEAN CORPUSCULAR VOLUME 89 fL (82-100); MONOCYTES # (AUTO) 0.5 K/uL (0.1-1.30); MONOCYTES % (AUTO) 3.3 % (2.0-12.0); NEUTROPHILS # (AUTO) 13.3 K/uL (1.8-8.9); NEUTROPHILS % (AUTO) 91.8 % (43.0-81.0); PLATELET COUNT (AUTO) 116 K/uL (150-450); RED CELL DISTRIBUTION WIDTH 16.8 % (11.5-15.0); WHITE BLOOD COUNT (AUTO) 14.5 K/uL (4.3-11.0)
[2023-04-11 07:42] LABS: CALCIUM, SERUM 7.8 mg/dL (8.5-10.1); CHLORIDE 109 mmol/L (98-107); CREATININE 1.8 mg/dL (0.6-1.3); GLUCOSE 224 mg/dL (74-106); MAGNESIUM 1.5 mg/dL (1.8-2.4); PHOSPHORUS 4.2 mg/dL (2.5-4.9); POTASSIUM 3.6 mmol/L (3.5-5.1); SODIUM SERUM 143 mmol/L (136-145); UREA NITROGEN, BLOOD 55 mg/dL (7-18)
[2023-04-11] MEDS: POLYETHYLENE GLYCOL 3350 17 GM POWD.PACK NG SCH (08:15)
[2023-04-11 08:16] LABS: CARBON DIOXIDE 21 mmol/L (21-32)
[2023-04-11] MEDS: methylPREDNISolone SOD SUCC 40 MG/ML VIAL IV SCH (08:16)
[2023-04-11] MEDS: PANTOPRAZOLE 40 MG/PACK PACK NG SCH ×2 (08:16→17:29)
[2023-04-11] MEDS: DIVALPROEX SODIUM 125 MG CAP.SPRINK NG SCH ×2 (08:16→21:58)
[2023-04-11] MEDS: LEVOTHYROXINE SODIUM 50 MCG TABLET GT SCH (08:16)
[2023-04-11] MEDS: ZINC SULFATE 220 MG CAPSULE NG SCH (08:16)
[2023-04-11] MEDS: QUETIAPINE FUMARATE 25 MG TABLET PO SCH ×2 (08:17→17:29)
[2023-04-11] MEDS: ACETAMINOPHEN 650 MG/SUPP.RECT RC SCH ×3 (08:17→17:00)
[2023-04-11] MEDS: FUROSEMIDE 20 MG/2 ML VIAL IV SCH ×2 (08:17→17:30)
[2023-04-11] MEDS: MEROPENEM 1 G in IV NS 0.9% 100 ML IV SCH (08:19)
[2023-04-11] MEDS: AMLODIPINE BESYLATE 10 MG TABLET NG SCH (09:00)
[2023-04-11] MEDS: CARVEDILOL 12.5 MG TABLET NG SCH ×2 (09:00→17:30)
[2023-04-11] MEDS: NITROGLYCERIN PACKET 1 GM PACKET TOP SCH ×2 (09:00→21:58)
[2023-04-11] MEDS ORDERED: MAGNESIUM OXIDE 400 MG TABLET GT ONE (10:00)
[2023-04-11] MEDS ORDERED: Magnesium 1GM/D5W 100ML PREMIX 1 G in PREMIX 1 EA IV SCH (11:00)
[2023-04-11] MEDS: DOCUSATE SODIUM LIQ 100 MG/10 ML UDC GT SCH ×2 (11:16→17:29)
[2023-04-11] MEDS: ENOXAPARIN SODIUM 60 MG/0.6 ML DISP.SYRIN SQ SCH (11:17)
[2023-04-11] MEDS: LIDOCAINE 5% (PATCH) 1 EA PATCH TP SCH (15:54)
[2023-04-11] MEDS: VANCOMYCIN 500 MG in IV D5W 100ml IV SCH (16:29)
[2023-04-11] MEDS: ACETAMINOPHEN 650 MG/20.3 ML UDC NG PRN (17:31)
[2023-04-11] MEDS: MEROPENEM 500 MG in IV NS 0.9% 50 ML IV SCH (21:58)
[2023-04-12] VITALS (8 sets, daily range): BP systolic 142–157; BP diastolic 53–57; TEMP 97.7–98.9; O2SAT 93–99
[2023-04-12] MEDS: BLOOD SUGAR DIAGNOSTIC 1 EACH STRIP IN SCH ×4 (00:37→18:19)
[2023-04-12] MEDS: IV D5/ 0.9% NACL 1,000 ML IV PRN ×2 (00:38→20:04)
[2023-04-12] MEDS: INSULIN REGULAR, HUMAN 100 UNIT/ML 3 ML VIAL SQ PRN ×2 (00:41→07:00)
[2023-04-12] MEDS: IPRATROPIUM NEB FS 0.5 MG/2.5 ML AMPUL.NEB NEB SCH ×4 (02:04→20:04)
[2023-04-12] MEDS: ALBUTEROL HALF STRENGTH 1.25 MG/3 ML VIAL.NEB NEB SCH ×4 (02:04→20:04)
[2023-04-12] MEDS: GLUCERNA 1.2 1,000 ML BOTTLE GT PRN (07:34)
[2023-04-12 08:04] LABS: BASOPHILS % (AUTO) 0.2 % (0.0-2.0); EOSINOPHILS # (AUTO) 0.1 K/uL (0.0-0.7); EOSINOPHILS % (AUTO) 0.4 % (0.0-6.0); HEMATOCRIT 29 % (33-45); HEMOGLOBIN 9.5 g/dL (11.5-14.8); LYMPHOCYTES # (AUTO) 0.7 K/uL (0.8-4.8); LYMPHOCYTES % (AUTO) 5.1 % (20.0-44.0); MEAN CORPUSCULAR HEMOGLOBIN 29 PG (26.0-33.0); MEAN CORPUSCULAR HGB CONC 32 g/dl (31.0-36.0); MEAN CORPUSCULAR VOLUME 90 fL (82-100); MONOCYTES # (AUTO) 0.4 K/uL (0.1-1.30); MONOCYTES % (AUTO) 2.7 % (2.0-12.0); NEUTROPHILS # (AUTO) 13.2 K/uL (1.8-8.9); NEUTROPHILS % (AUTO) 91.6 % (43.0-81.0); PLATELET COUNT (AUTO) 118 K/uL (150-450); RED BLOOD CELL COUNT(AUTO) 3.28 MIL/uL (4.0-5.2); WHITE BLOOD COUNT (AUTO) 14.4 K/uL (4.3-11.0)
[2023-04-12 08:11] LABS: CALCIUM, SERUM 7.8 mg/dL (8.5-10.1); CARBON DIOXIDE 27 mmol/L (21-32); CHLORIDE 109 mmol/L (98-107); CREATININE 1.7 mg/dL (0.6-1.3); GLUCOSE 241 mg/dL (74-106); MAGNESIUM 1.5 mg/dL (1.8-2.4); PHOSPHORUS 4.9 mg/dL (2.5-4.9); POTASSIUM 3.5 mmol/L (3.5-5.1); SODIUM SERUM 143 mmol/L (136-145); UREA NITROGEN, BLOOD 57 mg/dL (7-18)
[2023-04-12] MEDS: LEVOTHYROXINE SODIUM 50 MCG TABLET GT SCH (08:15)
[2023-04-12] MEDS: POLYETHYLENE GLYCOL 3350 17 GM POWD.PACK NG SCH (09:52)
[2023-04-12] MEDS: MEROPENEM 500 MG in IV NS 0.9% 50 ML IV SCH ×2 (09:52→20:50)
[2023-04-12] MEDS: NITROGLYCERIN PACKET 1 GM PACKET TOP SCH ×2 (09:53→20:51)
[2023-04-12] MEDS: CARVEDILOL 12.5 MG TABLET NG SCH ×2 (09:53→17:42)
[2023-04-12] MEDS: methylPREDNISolone SOD SUCC 40 MG/ML VIAL IV SCH (09:54)
[2023-04-12] MEDS: ACETAMINOPHEN 650 MG/SUPP.RECT RC SCH ×3 (09:54→17:42)
[2023-04-12] MEDS: PANTOPRAZOLE 40 MG/PACK PACK NG SCH ×2 (09:54→17:41)
[2023-04-12] MEDS: AMLODIPINE BESYLATE 10 MG TABLET NG SCH (09:54)
[2023-04-12] MEDS: QUETIAPINE FUMARATE 25 MG TABLET PO SCH ×2 (09:55→17:41)
[2023-04-12] MEDS: DIVALPROEX SODIUM 125 MG CAP.SPRINK NG SCH ×2 (09:55→20:51)
[2023-04-12] MEDS: DOCUSATE SODIUM LIQ 100 MG/10 ML UDC GT SCH ×2 (09:55→17:40)
[2023-04-12] MEDS: ZINC SULFATE 220 MG CAPSULE NG SCH (09:55)
[2023-04-12] MEDS: FUROSEMIDE 20 MG/2 ML VIAL IV SCH ×2 (09:55→17:41)
[2023-04-12] MEDS ORDERED: MAGNESIUM OXIDE 400 MG TABLET GT ONE (10:00)
[2023-04-12] MEDS: ENOXAPARIN SODIUM 60 MG/0.6 ML DISP.SYRIN SQ SCH (12:00)
[2023-04-12] MEDS ORDERED: Magnesium 1GM/D5W 100ML PREMIX 100 ML IV SCH (14:30)
[2023-04-12] MEDS: LIDOCAINE 5% (PATCH) 1 EA PATCH TP SCH (15:00)
[2023-04-12] MEDS: VANCOMYCIN 500 MG in IV D5W 100ml IV SCH (17:40)
[2023-04-13] VITALS (9 sets, daily range): BP systolic 134–142; BP diastolic 54–73; TEMP 98.2–98.4; O2SAT 0–100
[2023-04-13] MEDS: BLOOD SUGAR DIAGNOSTIC 1 EACH STRIP IN SCH ×3 (00:05→12:47)
[2023-04-13] MEDS: INSULIN REGULAR, HUMAN 100 UNIT/ML 3 ML VIAL SQ PRN ×3 (00:07→12:43)
[2023-04-13] MEDS: IPRATROPIUM NEB FS 0.5 MG/2.5 ML AMPUL.NEB NEB SCH ×3 (02:04→13:34)
[2023-04-13] MEDS: ALBUTEROL HALF STRENGTH 1.25 MG/3 ML VIAL.NEB NEB SCH ×3 (02:04→13:34)
[2023-04-13 06:59] LABS: BASOPHILS % (AUTO) 0.4 % (0.0-2.0); EOSINOPHILS # (AUTO) 0.1 K/uL (0.0-0.7); EOSINOPHILS % (AUTO) 0.8 % (0.0-6.0); HEMATOCRIT 28 % (33-45); HEMOGLOBIN 9.2 g/dL (11.5-14.8); LYMPHOCYTES # (AUTO) 0.7 K/uL (0.8-4.8); LYMPHOCYTES % (AUTO) 7.1 % (20.0-44.0); MEAN CORPUSCULAR HEMOGLOBIN 29 PG (26.0-33.0); MEAN CORPUSCULAR HGB CONC 33 g/dl (31.0-36.0); MEAN CORPUSCULAR VOLUME 89 fL (82-100); MONOCYTES # (AUTO) 0.4 K/uL (0.1-1.30); MONOCYTES % (AUTO) 3.5 % (2.0-12.0); NEUTROPHILS # (AUTO) 9.1 K/uL (1.8-8.9); NEUTROPHILS % (AUTO) 88.2 % (43.0-81.0); PLATELET COUNT (AUTO) 104 K/uL (150-450); RED BLOOD CELL COUNT(AUTO) 3.16 MIL/uL (4.0-5.2); RED CELL DISTRIBUTION WIDTH 17.1 % (11.5-15.0); WHITE BLOOD COUNT (AUTO) 10.3 K/uL (4.3-11.0)
[2023-04-13 07:15] LABS: ALANINE AMINOTRANSFERASE 13 U/L (12-78); ALKALINE PHOSPHATASE 133 U/L (46-116); ASPARTATE AMINOTRANSFERASE 14 U/L (15-37); BILIRUBIN,TOTAL 0.2 mg/dL (0.2-1.0); CALCIUM, SERUM 7.3 mg/dL (8.5-10.1); CARBON DIOXIDE 26 mmol/L (21-32); CHLORIDE 110 mmol/L (98-107); CREATININE 1.7 mg/dL (0.6-1.3); GLUCOSE 240 mg/dL (74-106); MAGNESIUM 1.4 mg/dL (1.8-2.4); PHOSPHORUS 4.9 mg/dL (2.5-4.9); POTASSIUM 3.8 mmol/L (3.5-5.1); SODIUM SERUM 143 mmol/L (136-145); TOTAL PROTEIN, SERUM 4.6 g/dL (6.4-8.2); UREA NITROGEN, BLOOD 55 mg/dL (7-18)
[2023-04-13 07:37] LABS: ALBUMIN 0.8 g/dL (3.4-5.0)
[2023-04-13] MEDS: DOCUSATE SODIUM LIQ 100 MG/10 ML UDC GT SCH (08:24)
[2023-04-13] MEDS: ZINC SULFATE 220 MG CAPSULE NG SCH (08:25)
[2023-04-13] MEDS: NITROGLYCERIN PACKET 1 GM PACKET TOP SCH (08:25)
[2023-04-13] MEDS: POLYETHYLENE GLYCOL 3350 17 GM POWD.PACK NG SCH (08:25)
[2023-04-13] MEDS: LEVOTHYROXINE SODIUM 50 MCG TABLET GT SCH (08:26)
[2023-04-13] MEDS: QUETIAPINE FUMARATE 25 MG TABLET PO SCH (08:26)
[2023-04-13] MEDS: FUROSEMIDE 20 MG/2 ML VIAL IV SCH (08:26)
[2023-04-13] MEDS: AMLODIPINE BESYLATE 10 MG TABLET NG SCH (08:26)
[2023-04-13] MEDS: CARVEDILOL 12.5 MG TABLET NG SCH (08:28)
[2023-04-13] MEDS: ACETAMINOPHEN 650 MG/SUPP.RECT RC SCH ×2 (08:28→12:39)
[2023-04-13] MEDS: DIVALPROEX SODIUM 125 MG CAP.SPRINK NG SCH (08:29)
[2023-04-13] MEDS: methylPREDNISolone SOD SUCC 40 MG/ML VIAL IV SCH (08:29)
[2023-04-13] MEDS: MEROPENEM 500 MG in IV NS 0.9% 50 ML IV SCH (08:30)
[2023-04-13] MEDS: PANTOPRAZOLE 40 MG/PACK PACK NG SCH (09:07)
[2023-04-13] MEDS: Magnesium 1GM/D5W 100ML PREMIX 100 ML IV SCH ×2 (11:34→12:39)
[2023-04-13] MEDS: ENOXAPARIN SODIUM 60 MG/0.6 ML DISP.SYRIN SQ SCH (11:37)
[2023-04-13] MEDS: LIDOCAINE 5% (PATCH) 1 EA PATCH TP SCH (15:57)
== END 2023-04-13 16:40 | DRG 177 ==
LOC: ER 04:08 → TRANSITION 07:47 → TELE1 19:48 → MEDSG1 03-26 10:21
PROVIDERS: ADMIT Nurse Practitioner Acute Care
PROC: 05HY33Z Insertion of Infusion Device into Upper Vein, Percutaneous Approach (ICD-10-PCS; principal; 2023-03-26)
PROC: 0DH63UZ Insertion of Feeding Device into Stomach, Percutaneous Approach (ICD-10-PCS; 2023-04-01)
PROC: 0DH63UZ Insertion of Feeding Device into Stomach, Percutaneous Approach (ICD-10-PCS; 2023-04-05)
DX: J69.0 Pneumonitis due to inhalation of food and vomit (principal); E43 Unspecified severe protein-calorie malnutrition; I50.23 Acute on chronic systolic (congestive) heart failure; N17.0 Acute kidney failure with tubular necrosis; G93.41 Metabolic encephalopathy; J96.01 Acute respiratory failure with hypoxia; K29.71 Gastritis, unspecified, with bleeding; I82.622 Acute embolism and thrombosis of deep veins of left upper extremity; D68.69 Other thrombophilia; E87.20 Acidosis, unspecified; E11.52 Type 2 diabetes mellitus with diabetic peripheral angiopathy with gangrene; I96 Gangrene, not elsewhere classified; M86.8X7 Other osteomyelitis, ankle and foot; I13.0 Hypertensive heart and chronic kidney disease with heart failure and stage 1 through stage 4 chronic kidney disease, or unspecified chronic kidney disease; F02.83 Dementia in other diseases classified elsewhere, unspecified severity, with mood disturbance; E87.21 Acute metabolic acidosis; L97.419 Non-pressure chronic ulcer of right heel and midfoot with unspecified severity; I16.0 Hypertensive urgency; D64.9 Anemia, unspecified; Z20.822 Contact with and (suspected) exposure to COVID-19; E03.9 Hypothyroidism, unspecified; E11.22 Type 2 diabetes mellitus with diabetic chronic kidney disease; E78.5 Hyperlipidemia, unspecified; E83.39 Other disorders of phosphorus metabolism; E88.09 Other disorders of plasma-protein metabolism, not elsewhere classified; K29.80 Duodenitis without bleeding; Z66 Do not resuscitate; Z74.01 Bed confinement status; Z87.891 Personal history of nicotine dependence; Z86.73 Personal history of transient ischemic attack (TIA), and cerebral infarction without residual deficits; I25.10 Atherosclerotic heart disease of native coronary artery without angina pectoris; J44.9 Chronic obstructive pulmonary disease, unspecified; R13.10 Dysphagia, unspecified; Z79.4 Long term (current) use of insulin; Z86.718 Personal history of other venous thrombosis and embolism; F39 Unspecified mood [affective] disorder; J84.9 Interstitial pulmonary disease, unspecified; E11.69 Type 2 diabetes mellitus with other specified complication; F29 Unspecified psychosis not due to a substance or known physiological condition; G30.9 Alzheimer's disease, unspecified; E83.42 Hypomagnesemia; E87.5 Hyperkalemia; I25.2 Old myocardial infarction; E11.621 Type 2 diabetes mellitus with foot ulcer; Z68.27 Body mass index [BMI] 27.0-27.9, adult
CPT/HCPCS: 31720; 36410; 36415; 36600; 43246; 70450-TC; 71045-TC; 71250-TC; 73630-TC; 74018; 74150-TC; 76770-TC; 80048-TC; 80053-TC; 80061-TC; 80076-TC; 80202-TC; 81001; 82550-TC; 82553; 82570-TC; 82803-TC; 82962-TC; 83605-TC; 83735-TC; 83880; 84100-TC; 84300-TC; 84484-TC; 85025-TC; 85610-TC; 85730-TC; 87040-TC; 87086-TC; 92526; 92611-TC; 93307-TC; 93970-TC; 94799-TC; 97110-TC; 97116-TC; 97530-TC; A4223; A6253; A6403; G0378; J0360; J0456; J0690; J0692; J0696; J1170; J1200; J1644; J1650; J1815; J1940; J2060; J2185; J2270; J2920; J2930; J3370; J3475; J3480; J3490; J7030; J7040; J7042; J7050; J7060; J7070; Q9963; Q9967